=== PATIENT | male | born 1950 | race Caucasian/White ===

== ENCOUNTER 2020-05-15 12:32 | Inpatient (IN) ==
[2020-05-15] MEDS ORDERED: Naloxone 0.4 MG/ML INJ IVP PRN (15:17)
[2020-05-15] MEDS: Cefepime HCl 2,000 MG in Water for inj. (sterile) 20 ML IVP SCH (15:41)
[2020-05-15] MEDS ORDERED: Artificial Tears SOLN 15 ML BOTTLE BOTH EYES PRN (15:51)
[2020-05-15] MEDS ORDERED: Cefepime HCl 2,000 MG in Water for inj. (sterile) 20 ML IVP SCH (16:00)
[2020-05-15] MEDS ORDERED: Hydrocortisone Sodium Succ 100 MG/2 ML VIAL IVP SCH (16:00)
[2020-05-15] MEDS ORDERED: Vancomycin (wt based) 1,000 MG VIAL IVPB SCH (16:00)
[2020-05-15] MEDS: FentaNYL (PF) 1,000 MCG/100 ML IV.SOLN IVC SCH (16:21)
[2020-05-15] MEDS: Midazolam HCl 50 MG/100 ML IV.SOLN IVC SCH (16:21)
[2020-05-15] MEDS ORDERED: Ringers Solution, Lactated 1,000 ML IVC ONE (16:33)
[2020-05-15] MEDS: Artificial Tears SOLN 15 ML BOTTLE BOTH EYES SCH ×2 (16:43→20:20)
[2020-05-15] MEDS: MetroNIDAZOLE 500 MG/100 ML 500 MG/100 ML BAG IVPB SCH (16:48)
[2020-05-15 17:14] LABS: INR 2.3
[2020-05-15 17:24] LABS: Alanine Aminotransferase 150 Units/L (7-52); Albumin 2.6 g/dL (3.5-5.7); Albumin/Globulin Ratio 0.8 (1.1-2.2); Alkaline Phosphatase 75 Units/L (34-104); Aspartate Amino Transferase 325 Units/L (13-39); BUN/Creatinine Ratio 33 (6-26); Bilirubin,Total 0.9 mg/dL (0.3-1.0); Blood Urea Nitrogen 38 mg/dL (8-23); Calcium 7.7 mg/dL (8.6-10.3); Carbon Dioxide 18 mEq/L (23-29); Chloride 124 mEq/L (98-107); Globulin 3.2 g/dL (2.4-3.5); Glucose 339 mg/dL (70-105); Osmolality,Calculated 344 (280-300); Potassium 3.6 mEq/L (3.5-5.1); Sodium 156 mEq/L (136-145); Total Protein 5.8 g/dL (6.4-8.9); eGFR For African Americans > 60 (> 60); eGFR For Non-African Americans > 60 (> 60)
[2020-05-15] MEDS ORDERED: Dextrose Gel 15 GM/37.5 ML TUBE PO PRN ×2 (17:42)
[2020-05-15] MEDS ORDERED: D5% in Water 1,000 ML IVC PRN (17:42)
[2020-05-15 17:48] LABS: ABG Base Excess -5 mEq/L (-2 to 3); ABG HCO3 20 mEq/L (21-27); ABG Oxygen Saturation 96 % (95-98); ABG PCO2 33 mmHg (35-45); ABG PH 7.37 pH Units (7.32-7.45); ABG PO2 83 mmHg (85-104); ABG TCO2 21 mEq/L (20-26)
[2020-05-15] MEDS: Insulin LISPRO 300 UNITS/3 ML VIAL SQ SCH (17:55)
[2020-05-15] MEDS: Norepinephrine 4 MG/254 ML IV.SOLN IVC SCH (18:05)
[2020-05-15 19:19] LABS: Hematocrit 25.7 % (37.5-50.1); Hemoglobin 7.6 g/dL (12.9-16.9); Mean Corpuscular HGB Conc 29.6 g/dL (31.6-35.5); Mean Corpuscular Hemoglobin 29.7 pg (28.0-33.3); Mean Platelet Volume 10.7 fL (9.4-12.4); Platelet Count 383 K/mcL (140-400); Red Blood Count 2.56 M/mcL (4.19-5.50); White Blood Count 13.8 K/mcL (4.3-11.1)
[2020-05-15 19:21] LABS: Mean Corpuscular Volume 100.4 fL (83.0-100.0)
[2020-05-15 20:40] LABS: Hematocrit 22.4 % (37.5-50.1); Hemoglobin 7.3 g/dL (12.9-16.9); Mean Corpuscular HGB Conc 32.6 g/dL (31.6-35.5); Mean Corpuscular Hemoglobin 34.6 pg (28.0-33.3); Mean Corpuscular Volume 106.2 fL (83.0-100.0); Mean Platelet Volume 10.6 fL (9.4-12.4); Nucleated Red Blood Cells 0.3 /100 WBC (0); Platelet Count 400 K/mcL (140-400); Red Blood Count 2.11 M/mcL (4.19-5.50); White Blood Count 13.9 K/mcL (4.3-11.1)
[2020-05-15 21:06] LABS: BUN/Creatinine Ratio 34 (6-26); Blood Urea Nitrogen 33 mg/dL (8-23); Calcium 7.2 mg/dL (8.6-10.3); Carbon Dioxide 19 mEq/L (23-29); Chloride 125 mEq/L (98-107); Glucose 282 mg/dL (70-105); Osmolality,Calculated 335 (280-300); Potassium 3.1 mEq/L (3.5-5.1); Sodium 154 mEq/L (136-145); eGFR For African Americans > 60 (> 60); eGFR For Non-African Americans > 60 (> 60)
[2020-05-15] MEDS: Insulin DETEMIR 100 UNIT/ML X5UNITS SQ SCH (21:22)
[2020-05-15] MEDS: Chlorhexidine Rinse 15 ML MOUTHWASH MM SCH (21:23)
[2020-05-15 21:33] LABS: Lymphocytes # 0.6 K/mcL (0.6-4.6); Neutrophils # 13.3 K/mcL (1.6-8.9); Platelet Estimate Normal (Normal); Polychromasia 1+ (Not Present)
[2020-05-15 21:34] LABS: Acanthocytes 2+ (Not Present)
[2020-05-15 21:35] LABS: Smudge Cells Present (Not Present)
[2020-05-15 21:50] LABS: Troponin I 0.06 ng/mL (< 0.04)
[2020-05-16 00:03] LABS: BUN/Creatinine Ratio 35 (6-26); Blood Urea Nitrogen 31 mg/dL (8-23); Calcium 7.2 mg/dL (8.6-10.3); Carbon Dioxide 21 mEq/L (23-29); Chloride 126 mEq/L (98-107); Glucose 207 mg/dL (70-105); Osmolality,Calculated 329 (280-300); Potassium 3.2 mEq/L (3.5-5.1); Sodium 153 mEq/L (136-145); eGFR For African Americans > 60 (> 60); eGFR For Non-African Americans > 60 (> 60)
[2020-05-16] MEDS: MetroNIDAZOLE 500 MG/100 ML 500 MG/100 ML BAG IVPB SCH ×4 (00:13→23:14)
[2020-05-16] MEDS: Artificial Tears SOLN 15 ML BOTTLE BOTH EYES SCH ×7 (00:13→23:27)
[2020-05-16] MEDS: Insulin LISPRO 300 UNITS/3 ML VIAL SQ SCH ×4 (00:15→19:33)
[2020-05-16] MEDS: FentaNYL (PF) 1,000 MCG/100 ML IV.SOLN IVC SCH ×3 (00:33→20:18)
[2020-05-16] MEDS: Norepinephrine 4 MG/254 ML IV.SOLN IVC SCH ×2 (00:57→20:18)
[2020-05-16] MEDS: Cefepime HCl 2,000 MG in Water for inj. (sterile) 20 ML IVP SCH ×3 (03:42→21:10)
[2020-05-16 04:16] LABS: ABG Base Excess -2 mEq/L (-2 to 3); ABG HCO3 24 mEq/L (21-27); ABG Oxygen Saturation 97 % (95-98); ABG PCO2 47 mmHg (35-45); ABG PH 7.31 pH Units (7.32-7.45); ABG PO2 100 mmHg (85-104); ABG TCO2 25 mEq/L (20-26); Blood Gas Modality ASSIST CONTROL; Blood Gas VT 450 cc
[2020-05-16 04:28] LABS: Hematocrit 20.7 % (37.5-50.1); Hemoglobin 6.9 g/dL (12.9-16.9); Mean Corpuscular HGB Conc 33.3 g/dL (31.6-35.5); Mean Corpuscular Volume 105.1 fL (83.0-100.0); Mean Platelet Volume 10.8 fL (9.4-12.4); Platelet Count 338 K/mcL (140-400); Red Blood Count 1.97 M/mcL (4.19-5.50); Red Cell Distribution Width 21.7 % (11.5-14.5); White Blood Count 13.5 K/mcL (4.3-11.1)
[2020-05-16 04:37] LABS: INR 2.1; Prothrombin Time 23.4 Seconds (9.4-12.1)
[2020-05-16 04:42] LABS: Alanine Aminotransferase 159 Units/L (7-52); Albumin 2.3 g/dL (3.5-5.7); Albumin/Globulin Ratio 0.8 (1.1-2.2); Alkaline Phosphatase 64 Units/L (34-104); Aspartate Amino Transferase 222 Units/L (13-39); BUN/Creatinine Ratio 38 (6-26); Bilirubin,Total 0.6 mg/dL (0.3-1.0); Blood Urea Nitrogen 30 mg/dL (8-23); Calcium 7.1 mg/dL (8.6-10.3); Carbon Dioxide 21 mEq/L (23-29); Chloride 126 mEq/L (98-107); Glucose 104 mg/dL (70-105); Osmolality,Calculated 320 (280-300); Potassium 3.1 mEq/L (3.5-5.1); Sodium 152 mEq/L (136-145); Total Protein 5.3 g/dL (6.4-8.9); eGFR For African Americans > 60 (> 60); eGFR For Non-African Americans > 60 (> 60)
[2020-05-16] MEDS: Chlorhexidine Rinse 15 ML MOUTHWASH MM SCH ×2 (08:19→21:05)
[2020-05-16] MEDS: Folic Acid 1 MG TABLET PO SCH (08:21)
[2020-05-16] MEDS ORDERED: Isovue-370 500 ML BOTTLE IVP ONE (08:30)
[2020-05-16] MEDS ORDERED: Perflutren Lipid Microsphere 1.3 ML in 0.9 % Sodium Chloride 8.7 ML IVP PRN (08:34)
[2020-05-16] MEDS ORDERED: Aspirin Enteric Coated 81 MG Tablet PO SCH (09:00)
[2020-05-16] MEDS: Midazolam HCl 50 MG/100 ML IV.SOLN IVC SCH (09:10)
[2020-05-16] MEDS ORDERED: 0.9 % Sodium Chloride 250 ML ONE (09:57)
[2020-05-16 10:35] LABS: Adenovirus Not Detected (Not Detect); Coronavirus 229E Not Detected (Not Detect); Coronavirus HKU1 Not Detected (Not Detect); Coronavirus NL63 Not Detected (Not Detect); Coronavirus OC43 Not Detected (Not Detect)
[2020-05-16 10:36] LABS: Bordetella Pertussis Not Detected (Not Detect); Chlamydophila pneumoniae Not Detected (Not Detect); Human Metapneumovirus Not Detected (Not Detect); Human Rhinovirus/Enterovirus Not Detected (Not Detect); Influenza A Subtype 2009 H1 Not Detected (Not Detect); Influenza B Not Detected (Not Detect); Mycoplasma pneumoniae Not Detected (Not Detect); Parainfluenza Virus 1 Not Detected (Not Detect); Parainfluenza Virus 2 Not Detected (Not Detect); Parainfluenza Virus 3 Not Detected (Not Detect); Parainfluenza Virus 4 Not Detected (Not Detect); Respiratory Syncytial Virus Not Detected (Not Detect); SARS-CoV-2 DETECTED (Not Detect)
[2020-05-16] MEDS: D5% in Water 1,000 ML IVC SCH ×2 (10:39→23:23)
[2020-05-16] MEDS: Dexamethasone 4 MG/ML VIAL IVP SCH (14:03)
[2020-05-16 14:55] LABS: Mean Corpuscular Hemoglobin 39.5 pg (28.0-33.3); Platelet Count 262 K/mcL (140-400); Red Blood Count 2.15 M/mcL (4.19-5.50); Red Cell Distribution Width 24.4 % (11.5-14.5)
[2020-05-16 14:56] LABS: Hemoglobin 8.5 g/dL (12.9-16.9)
[2020-05-16 15:04] LABS: Fibrinogen 512 mg/dL (169-393)
[2020-05-16 15:08] LABS: D-Dimer 7336 ng/mLFEU (0-500)
[2020-05-16 15:13] LABS: BUN/Creatinine Ratio 35 (6-26); Blood Urea Nitrogen 26 mg/dL (8-23); Calcium 6.9 mg/dL (8.6-10.3); Carbon Dioxide 21 mEq/L (23-29); Chloride 125 mEq/L (98-107); Glucose 111 mg/dL (70-105); Osmolality,Calculated 317 (280-300); Potassium 3.3 mEq/L (3.5-5.1); Sodium 151 mEq/L (136-145); eGFR For African Americans > 60 (> 60); eGFR For Non-African Americans > 60 (> 60)
[2020-05-16 15:14] LABS: C-Reactive Protein 190 mg/L (Less than 10)
[2020-05-16 15:32] LABS: Ferritin 359 ng/mL (20-250)
[2020-05-16] MEDS ORDERED: Potassium Chloride Elixir 20 MEQ/15 ML UDC GTUBE ONE (15:32)
[2020-05-16] MEDS: Pantoprazole 40 MG in 0.9 % Sodium Chloride Mini Bag 100 ML IVC SCH ×2 (15:42→21:03)
[2020-05-16 16:31] LABS: VBG Ionized Calcium 1.02 mmol/L (1.15-1.35)
[2020-05-16] MEDS ORDERED: Pantoprazole 40 MG VIAL IVP SCH (18:00)
[2020-05-16 20:12] LABS: Hematocrit 28.7 % (37.5-50.1); Hemoglobin 9.7 g/dL (12.9-16.9); Mean Corpuscular HGB Conc 33.8 g/dL (31.6-35.5); Mean Corpuscular Hemoglobin 33.6 pg (28.0-33.3); Mean Platelet Volume 11.1 fL (9.4-12.4); Platelet Count 274 K/mcL (140-400); Red Blood Count 2.89 M/mcL (4.19-5.50); Red Cell Distribution Width 20.2 % (11.5-14.5); White Blood Count 17.5 K/mcL (4.3-11.1)
[2020-05-16 20:24] LABS: Mean Corpuscular Volume 99.3 fL (83.0-100.0)
[2020-05-16] MEDS: Insulin DETEMIR 100 UNIT/ML X5UNITS SQ SCH (21:06)
[2020-05-17] MEDS: Insulin LISPRO 300 UNITS/3 ML VIAL SQ SCH ×5 (00:52→23:34)
[2020-05-17] MEDS: Pantoprazole 40 MG in 0.9 % Sodium Chloride Mini Bag 100 ML IVC SCH ×5 (02:06→18:42)
[2020-05-17] MEDS: Artificial Tears SOLN 15 ML BOTTLE BOTH EYES SCH ×6 (02:50→23:32)
[2020-05-17 04:32] LABS: Hematocrit 30.9 % (37.5-50.1); Hemoglobin 10.5 g/dL (12.9-16.9); Mean Platelet Volume 11.5 fL (9.4-12.4); Platelet Count 249 K/mcL (140-400); Red Cell Distribution Width 23.1 % (11.5-14.5); White Blood Count 16.3 K/mcL (4.3-11.1)
[2020-05-17 04:40] LABS: ABG Base Excess -6 mEq/L (-2 to 3); ABG HCO3 19 mEq/L (21-27); ABG Oxygen Saturation 96 % (95-98); ABG PCO2 35 mmHg (35-45); ABG PH 7.35 pH Units (7.32-7.45); ABG PO2 84 mmHg (85-104); ABG TCO2 20 mEq/L (20-26); Blood Gas Modality ASSIST CONTROL; Blood Gas VT 450 cc
[2020-05-17 04:50] LABS: Alanine Aminotransferase 262 Units/L (7-52); Albumin 2.4 g/dL (3.5-5.7); Albumin/Globulin Ratio 0.8 (1.1-2.2); Alkaline Phosphatase 76 Units/L (34-104); Aspartate Amino Transferase 276 Units/L (13-39); BUN/Creatinine Ratio 33 (6-26); Bilirubin,Total 0.6 mg/dL (0.3-1.0); Blood Urea Nitrogen 22 mg/dL (8-23); Calcium 6.8 mg/dL (8.6-10.3); Carbon Dioxide 16 mEq/L (23-29); Chloride 123 mEq/L (98-107); Glucose 244 mg/dL (70-105); Osmolality,Calculated 311 (280-300); Sodium 145 mEq/L (136-145); Total Protein 5.4 g/dL (6.4-8.9); eGFR For African Americans > 60 (> 60); eGFR For Non-African Americans > 60 (> 60)
[2020-05-17] MEDS: Cefepime HCl 2,000 MG in Water for inj. (sterile) 20 ML IVP SCH ×3 (04:57→20:24)
[2020-05-17] MEDS: FentaNYL (PF) 1,000 MCG/100 ML IV.SOLN IVC SCH ×2 (06:11→17:37)
[2020-05-17] MEDS: Midazolam HCl 50 MG/100 ML IV.SOLN IVC SCH (06:12)
[2020-05-17] MEDS: Chlorhexidine Rinse 15 ML MOUTHWASH MM SCH ×2 (08:30→20:23)
[2020-05-17] MEDS: Dexamethasone 4 MG/ML VIAL IVP SCH (08:30)
[2020-05-17] MEDS: Folic Acid 1 MG TABLET PO SCH (08:30)
[2020-05-17] MEDS: MetroNIDAZOLE 500 MG/100 ML 500 MG/100 ML BAG IVPB SCH ×3 (08:30→23:32)
[2020-05-17] MEDS: Docusate Oral Soln 100 MG/10 ML UDC GTUBE SCH ×2 (13:11→20:23)
[2020-05-17] MEDS: *HR* Heparin 5,000 UNIT/ML VIAL SQ SCH ×2 (13:12→20:24)
[2020-05-17] MEDS: Norepinephrine 4 MG/254 ML IV.SOLN IVC SCH (14:45)
[2020-05-17] MEDS: Dexmedetomidine HCl 400 MCG/100 ML MLS IVC SCH (14:57)
[2020-05-17] MEDS: Insulin DETEMIR 100 UNIT/ML X5UNITS SQ SCH (20:24)
[2020-05-18] MEDS: Pantoprazole 40 MG in 0.9 % Sodium Chloride Mini Bag 100 ML IVC SCH ×3 (00:07→11:11)
[2020-05-18 04:12] LABS: Hematocrit 29.2 % (37.5-50.1); Hemoglobin 10.1 g/dL (12.9-16.9); INR 1.9; Mean Corpuscular HGB Conc 34.6 g/dL (31.6-35.5); Mean Corpuscular Hemoglobin 34.8 pg (28.0-33.3); Mean Corpuscular Volume 100.7 fL (83.0-100.0); Mean Platelet Volume 11.8 fL (9.4-12.4); Platelet Count 303 K/mcL (140-400); Prothrombin Time 21.5 Seconds (9.4-12.1); Red Cell Distribution Width 21.3 % (11.5-14.5); White Blood Count 21.1 K/mcL (4.3-11.1)
[2020-05-18] MEDS: Artificial Tears SOLN 15 ML BOTTLE BOTH EYES SCH ×5 (04:16→20:17)
[2020-05-18 04:18] LABS: ABG Base Excess -3 mEq/L (-2 to 3); ABG HCO3 20 mEq/L (21-27); ABG Oxygen Saturation 95 % (95-98); ABG PCO2 32 mmHg (35-45); ABG PH 7.42 pH Units (7.32-7.45); ABG PO2 73 mmHg (85-104); ABG TCO2 21 mEq/L (20-26); Blood Gas VT 450 cc
[2020-05-18 04:28] LABS: Alanine Aminotransferase 270 Units/L (7-52); Albumin 2.3 g/dL (3.5-5.7); Albumin/Globulin Ratio 0.8 (1.1-2.2); Alkaline Phosphatase 80 Units/L (34-104); Aspartate Amino Transferase 213 Units/L (13-39); BUN/Creatinine Ratio 39 (6-26); Bilirubin,Total 0.6 mg/dL (0.3-1.0); Blood Urea Nitrogen 26 mg/dL (8-23); Calcium 6.9 mg/dL (8.6-10.3); Carbon Dioxide 21 mEq/L (23-29); Chloride 124 mEq/L (98-107); Glucose 139 mg/dL (70-105); Osmolality,Calculated 321 (280-300); Potassium 3.3 mEq/L (3.5-5.1); Sodium 152 mEq/L (136-145); Total Protein 5.3 g/dL (6.4-8.9); eGFR For African Americans > 60 (> 60); eGFR For Non-African Americans > 60 (> 60)
[2020-05-18 04:33] LABS: C-Reactive Protein 56 mg/L (Less than 10)
[2020-05-18] MEDS: FentaNYL (PF) 1,000 MCG/100 ML IV.SOLN IVC SCH ×2 (04:44→14:40)
[2020-05-18 04:48] LABS: Ferritin 378 ng/mL (20-250)
[2020-05-18] MEDS: *HR* Heparin 5,000 UNIT/ML VIAL SQ SCH ×3 (05:09→22:26)
[2020-05-18] MEDS: Cefepime HCl 2,000 MG in Water for inj. (sterile) 20 ML IVP SCH ×3 (05:10→22:24)
[2020-05-18] MEDS: Insulin LISPRO 300 UNITS/3 ML VIAL SQ SCH ×3 (05:24→18:12)
[2020-05-18] MEDS: Chlorhexidine Rinse 15 ML MOUTHWASH MM SCH ×2 (07:37→22:18)
[2020-05-18] MEDS: MetroNIDAZOLE 500 MG/100 ML 500 MG/100 ML BAG IVPB SCH ×2 (07:37→16:54)
[2020-05-18] MEDS: Folic Acid 1 MG TABLET PO SCH (07:38)
[2020-05-18] MEDS: Docusate Oral Soln 100 MG/10 ML UDC GTUBE SCH ×2 (07:38→22:19)
[2020-05-18] MEDS: Dexamethasone 4 MG/ML VIAL IVP SCH (07:38)
[2020-05-18] MEDS: Norepinephrine 4 MG/254 ML IV.SOLN IVC SCH (12:05)
[2020-05-18] MEDS: Dexmedetomidine HCl 400 MCG/100 ML MLS IVC SCH (13:42)
[2020-05-18] MEDS: Potassium Chloride Elixir 20 MEQ/15 ML UDC GTUBE SCH ×2 (14:18→22:25)
[2020-05-18] MEDS ORDERED: Aspirin Enteric Coated 81 MG Tablet PO SCH (16:30)
[2020-05-18] MEDS: Midazolam HCl 50 MG/100 ML IV.SOLN IVC SCH (16:52)
[2020-05-18] MEDS: Pantoprazole 40 MG VIAL IVP SCH (16:55)
[2020-05-18] MEDS: Aspirin 81 MG TAB.CHEW GTUBE SCH (17:51)
[2020-05-18] MEDS: Insulin DETEMIR 100 UNIT/ML X5UNITS SQ SCH (22:22)
[2020-05-19] MEDS: MetroNIDAZOLE 500 MG/100 ML 500 MG/100 ML BAG IVPB SCH ×3 (00:55→17:03)
[2020-05-19] MEDS: Artificial Tears SOLN 15 ML BOTTLE BOTH EYES SCH ×6 (00:55→19:38)
[2020-05-19] MEDS: Insulin LISPRO 300 UNITS/3 ML VIAL SQ SCH ×2 (00:57→06:41)
[2020-05-19 04:44] LABS: ABG Base Excess -4 mEq/L (-2 to 3); ABG HCO3 20 mEq/L (21-27); ABG Oxygen Saturation 96 % (95-98); ABG PCO2 29 mmHg (35-45); ABG PH 7.44 pH Units (7.32-7.45); ABG PO2 77 mmHg (85-104); ABG TCO2 21 mEq/L (20-26); Blood Gas VT 450 cc
[2020-05-19] MEDS: Norepinephrine 4 MG/254 ML IV.SOLN IVC SCH ×2 (04:48→22:26)
[2020-05-19] MEDS: *HR* Heparin 5,000 UNIT/ML VIAL SQ SCH (05:44)
[2020-05-19] MEDS: Cefepime HCl 2,000 MG in Water for inj. (sterile) 20 ML IVP SCH ×3 (05:44→23:59)
[2020-05-19] MEDS: Pantoprazole 40 MG VIAL IVP SCH ×2 (05:46→16:32)
[2020-05-19] MEDS: Dexmedetomidine HCl 400 MCG/100 ML MLS IVC SCH ×2 (06:03→16:30)
[2020-05-19] MEDS: FentaNYL (PF) 1,000 MCG/100 ML IV.SOLN IVC SCH ×2 (07:00→23:58)
[2020-05-19] MEDS: Dexamethasone 4 MG/ML VIAL IVP SCH (07:31)
[2020-05-19] MEDS: Chlorhexidine Rinse 15 ML MOUTHWASH MM SCH ×2 (07:33→19:38)
[2020-05-19] MEDS: Aspirin 81 MG TAB.CHEW GTUBE SCH (07:34)
[2020-05-19] MEDS: Folic Acid 1 MG TABLET PO SCH (07:34)
[2020-05-19] MEDS: Docusate Oral Soln 100 MG/10 ML UDC GTUBE SCH ×2 (07:38→19:38)
[2020-05-19] MEDS: Potassium Chloride Elixir 20 MEQ/15 ML UDC GTUBE SCH (07:38)
[2020-05-19 09:34] LABS: Hematocrit 31.6 % (37.5-50.1); Hemoglobin 10.4 g/dL (12.9-16.9); Mean Corpuscular HGB Conc 32.9 g/dL (31.6-35.5); Mean Corpuscular Hemoglobin 33.9 pg (28.0-33.3); Mean Corpuscular Volume 102.9 fL (83.0-100.0); Mean Platelet Volume 11.4 fL (9.4-12.4); Platelet Count 312 K/mcL (140-400); Red Blood Count 3.07 M/mcL (4.19-5.50); White Blood Count 22.8 K/mcL (4.3-11.1)
[2020-05-19] MEDS ORDERED: Calcium Gluconate 1,000 MG/10 ML VIAL IVPB ONE (09:45)
[2020-05-19 10:16] LABS: Potassium 5.5 mEq/L (3.5-5.1)
[2020-05-19 10:17] LABS: Alanine Aminotransferase 192 Units/L (7-52); Albumin 2.4 g/dL (3.5-5.7); Albumin/Globulin Ratio 0.8 (1.1-2.2); Alkaline Phosphatase 113 Units/L (34-104); Aspartate Amino Transferase 75 Units/L (13-39); BUN/Creatinine Ratio 35 (6-26); Bilirubin,Total 0.4 mg/dL (0.3-1.0); Blood Urea Nitrogen 23 mg/dL (8-23); Carbon Dioxide 17 mEq/L (23-29); Chloride 124 mEq/L (98-107); Globulin 2.9 g/dL (2.4-3.5); Glucose 292 mg/dL (70-105); Osmolality,Calculated 320 (280-300); Sodium 148 mEq/L (136-145); Total Protein 5.3 g/dL (6.4-8.9); eGFR For African Americans > 60 (> 60); eGFR For Non-African Americans > 60 (> 60)
[2020-05-19] MEDS: Calcium Gluconate 1gm/50mL 1 GM/50 ML BAG IVPB SCH ×2 (11:08→12:25)
[2020-05-19] MEDS ORDERED: *HR* Heparin 5,000 UNIT/ML VIAL IVP PRN ×2 (11:42)
[2020-05-19] MEDS: Insulin LISPRO 300 UNITS/3 ML VIAL SUBQ SCH ×3 (12:24→20:10)
[2020-05-19 14:12] LABS: Heparin anti-factor XA UFH < 0.04 IU/mL (0.30-0.70)
[2020-05-19 14:13] LABS: INR 1.4; Prothrombin Time 16.3 Seconds (9.4-12.1)
[2020-05-19] MEDS: Furosemide 40 MG/4 ML VIAL IVP SCH (14:26)
[2020-05-19] MEDS: Heparin 25,000UNIT/250ML 1/2NS 25,000 UNIT/250 ML IV.SOLN IVC SCH (14:29)
[2020-05-19] MEDS: Midazolam HCl 50 MG/100 ML IV.SOLN IVC SCH (16:33)
[2020-05-19] MEDS: Insulin DETEMIR 100 UNIT/ML X5UNITS SUBQ SCH (20:10)
[2020-05-20] MEDS: Insulin LISPRO 300 UNITS/3 ML VIAL SUBQ SCH ×6 (00:53→20:13)
[2020-05-20 04:26] LABS: Hematocrit 32.4 % (37.5-50.1); Hemoglobin 9.8 g/dL (12.9-16.9); Mean Corpuscular HGB Conc 30.2 g/dL (31.6-35.5); Mean Corpuscular Hemoglobin 29.4 pg (28.0-33.3); Mean Corpuscular Volume 97.3 fL (83.0-100.0); Platelet Count 268 K/mcL (140-400); Red Blood Count 3.33 M/mcL (4.19-5.50); Red Cell Distribution Width 19.5 % (11.5-14.5); White Blood Count 24.3 K/mcL (4.3-11.1)
[2020-05-20 04:29] LABS: ABG Base Excess -2 mEq/L (-2 to 3); ABG HCO3 22 mEq/L (21-27); ABG Oxygen Saturation 97 % (95-98); ABG PCO2 32 mmHg (35-45); ABG PH 7.44 pH Units (7.32-7.45); ABG PO2 83 mmHg (85-104); ABG TCO2 23 mEq/L (20-26); Blood Gas VT 450 cc
[2020-05-20 04:44] LABS: Alanine Aminotransferase 126 Units/L (7-52); Albumin 2.2 g/dL (3.5-5.7); Albumin/Globulin Ratio 0.8 (1.1-2.2); Alkaline Phosphatase 84 Units/L (34-104); Aspartate Amino Transferase 35 Units/L (13-39); BUN/Creatinine Ratio 45 (6-26); Bilirubin,Total 0.4 mg/dL (0.3-1.0); Blood Urea Nitrogen 26 mg/dL (8-23); Calcium 7.5 mg/dL (8.6-10.3); Carbon Dioxide 24 mEq/L (23-29); Chloride 115 mEq/L (98-107); Globulin 2.9 g/dL (2.4-3.5); Glucose 213 mg/dL (70-105); Osmolality,Calculated 305 (280-300); Potassium 4.3 mEq/L (3.5-5.1); Sodium 142 mEq/L (136-145); Total Protein 5.1 g/dL (6.4-8.9); eGFR For African Americans > 60 (> 60); eGFR For Non-African Americans > 60 (> 60)
[2020-05-20] MEDS: Artificial Tears SOLN 15 ML BOTTLE BOTH EYES SCH ×6 (04:52→20:15)
[2020-05-20] MEDS: Cefepime HCl 2,000 MG in Water for inj. (sterile) 20 ML IVP SCH ×3 (05:58→21:44)
[2020-05-20] MEDS: Pantoprazole 40 MG VIAL IVP SCH ×2 (05:59→17:14)
[2020-05-20] MEDS: Dexmedetomidine HCl 400 MCG/100 ML MLS IVC SCH (06:59)
[2020-05-20] MEDS: Folic Acid 1 MG TABLET PO SCH (07:33)
[2020-05-20] MEDS: Chlorhexidine Rinse 15 ML MOUTHWASH MM SCH ×2 (07:33→21:32)
[2020-05-20] MEDS: Dexamethasone 4 MG/ML VIAL IVP SCH (07:33)
[2020-05-20] MEDS: Aspirin 81 MG TAB.CHEW GTUBE SCH (07:33)
[2020-05-20] MEDS: Furosemide 40 MG/4 ML VIAL IVP SCH (07:34)
[2020-05-20] MEDS: MetroNIDAZOLE 500 MG/100 ML 500 MG/100 ML BAG IVPB SCH ×3 (07:34→17:13)
[2020-05-20] MEDS: Docusate Oral Soln 100 MG/10 ML UDC GTUBE SCH ×2 (07:37→21:32)
[2020-05-20] MEDS: Insulin DETEMIR 100 UNIT/ML X5UNITS SUBQ SCH ×2 (07:38→21:32)
[2020-05-20] MEDS: FentaNYL (PF) 1,000 MCG/100 ML IV.SOLN IVC SCH ×2 (10:45→11:00)
[2020-05-20 12:36] LABS: VBG Ionized Calcium 1.09 mmol/L (1.15-1.35)
[2020-05-20] MEDS: Calcium Gluconate 1gm/50mL 1 GM/50 ML BAG IVPB SCH ×2 (15:10→16:10)
[2020-05-20] MEDS: Norepinephrine 4 MG/254 ML IV.SOLN IVC SCH (15:13)
[2020-05-20] MEDS: Midazolam HCl 50 MG/100 ML IV.SOLN IVC SCH (16:21)
[2020-05-20] MEDS: Heparin 25,000UNIT/250ML 1/2NS 25,000 UNIT/250 ML IV.SOLN IVC SCH (16:22)
[2020-05-20] MEDS ORDERED: Potassium Chloride Elixir 20 MEQ/15 ML UDC GTUBE SCH (21:00)
[2020-05-21] MEDS: Insulin LISPRO 300 UNITS/3 ML VIAL SUBQ SCH ×6 (00:13→21:20)
[2020-05-21] MEDS: Artificial Tears SOLN 15 ML BOTTLE BOTH EYES SCH ×6 (00:15→21:52)
[2020-05-21] MEDS: MetroNIDAZOLE 500 MG/100 ML 500 MG/100 ML BAG IVPB SCH ×3 (00:18→15:47)
[2020-05-21 04:38] LABS: ABG Base Excess 0 mEq/L (-2 to 3); ABG HCO3 23 mEq/L (21-27); ABG Oxygen Saturation 95 % (95-98); ABG PCO2 33 mmHg (35-45); ABG PH 7.46 pH Units (7.32-7.45); ABG PO2 72 mmHg (85-104); ABG TCO2 24 mEq/L (20-26); Blood Gas VT 450 cc
[2020-05-21] MEDS: Pantoprazole 40 MG VIAL IVP SCH ×2 (05:20→18:03)
[2020-05-21] MEDS: Cefepime HCl 2,000 MG in Water for inj. (sterile) 20 ML IVP SCH ×3 (05:21→21:53)
[2020-05-21] MEDS: Heparin 25,000UNIT/250ML 1/2NS 25,000 UNIT/250 ML IV.SOLN IVC SCH (05:24)
[2020-05-21] MEDS: FentaNYL (PF) 1,000 MCG/100 ML IV.SOLN IVC SCH (05:47)
[2020-05-21] MEDS: Aspirin 81 MG TAB.CHEW GTUBE SCH (07:54)
[2020-05-21] MEDS: Chlorhexidine Rinse 15 ML MOUTHWASH MM SCH ×2 (07:55→21:53)
[2020-05-21] MEDS: Dexamethasone 4 MG/ML VIAL IVP SCH (07:55)
[2020-05-21] MEDS: Docusate Oral Soln 100 MG/10 ML UDC GTUBE SCH ×2 (07:55→21:53)
[2020-05-21] MEDS: Folic Acid 1 MG TABLET PO SCH (07:56)
[2020-05-21] MEDS: Insulin DETEMIR 100 UNIT/ML X5UNITS SUBQ SCH ×2 (07:56→21:53)
[2020-05-21] MEDS: Furosemide 40 MG/4 ML VIAL IVP SCH (07:56)
[2020-05-21 10:57] LABS: Bacteria,Urine Few per hpf (None-Few); Bilirubin,Urine Negative (Negative); Blood,Urine Trace (Negative); Clarity,Urine Clear (Clear); Color,Urine Colorless (Yellow); Glucose,Urine (UA) Normal (Normal); Ketones,Urine Negative (Negative); Leukocyte Esterase,Urine Negative (Negative); Mucus,Urine Few per lpf (None-Few); Nitrite,Urine Negative (Negative); Protein,Urine Negative (Neg-Trace); RBC,Urine 0-3 per hpf (0-3); Specific Gravity,Urine 1.009 (1.010-1.025); Squamous Epithelial Cell,Urine Few per hpf (None-Few); Urobilinogen,Urine Normal (Normal); WBC,Urine 0-3 per hpf (0-3)
[2020-05-21 11:50] LABS: Hematocrit 31.8 % (37.5-50.1); Hemoglobin 11.1 g/dL (12.9-16.9); Mean Corpuscular HGB Conc 34.9 g/dL (31.6-35.5); Mean Corpuscular Volume 100.3 fL (83.0-100.0); Mean Platelet Volume 11.9 fL (9.4-12.4); Nucleated Red Blood Cells 0.1 /100 WBC (0); Platelet Count 258 K/mcL (140-400); Red Blood Count 3.17 M/mcL (4.19-5.50); Red Cell Distribution Width 22.5 % (11.5-14.5); White Blood Count 24.3 K/mcL (4.3-11.1)
[2020-05-21 12:12] LABS: Alanine Aminotransferase 86 Units/L (7-52); Albumin 2.6 g/dL (3.5-5.7); Albumin/Globulin Ratio 0.8 (1.1-2.2); Alkaline Phosphatase 86 Units/L (34-104); Aspartate Amino Transferase 29 Units/L (13-39); BUN/Creatinine Ratio 38 (6-26); Bilirubin,Total 0.5 mg/dL (0.3-1.0); Blood Urea Nitrogen 20 mg/dL (8-23); Calcium 7.9 mg/dL (8.6-10.3); Carbon Dioxide 25 mEq/L (23-29); Chloride 107 mEq/L (98-107); Globulin 3.3 g/dL (2.4-3.5); Glucose 124 mg/dL (70-105); Osmolality,Calculated 290 (280-300); Sodium 138 mEq/L (136-145); Total Protein 5.9 g/dL (6.4-8.9); eGFR For African Americans > 60 (> 60); eGFR For Non-African Americans > 60 (> 60)
[2020-05-21 12:46] LABS: Anisocytosis 2+ (Not Present); Lymphocytes # 2.2 K/mcL (0.6-4.6); Monocytes # 1.7 K/mcL (0.0-1.3); Neutrophils # 19.7 K/mcL (1.6-8.9); Polychromasia 1+ (Not Present)
[2020-05-21] MEDS: Norepinephrine 4 MG/254 ML IV.SOLN IVC SCH (13:25)
[2020-05-21] MEDS: Dexmedetomidine HCl 400 MCG/100 ML MLS IVC SCH (14:16)
[2020-05-21] MEDS: Midazolam HCl 50 MG/100 ML IV.SOLN IVC SCH (18:04)
[2020-05-22] MEDS: Artificial Tears SOLN 15 ML BOTTLE BOTH EYES SCH ×7 (00:55→23:59)
[2020-05-22] MEDS: Insulin LISPRO 300 UNITS/3 ML VIAL SUBQ SCH ×6 (01:10→20:13)
[2020-05-22] MEDS: MetroNIDAZOLE 500 MG/100 ML 500 MG/100 ML BAG IVPB SCH ×3 (01:12→15:17)
[2020-05-22] MEDS: Pantoprazole 40 MG VIAL IVP SCH ×2 (04:54→17:49)
[2020-05-22] MEDS: Cefepime HCl 2,000 MG in Water for inj. (sterile) 20 ML IVP SCH ×3 (04:54→22:20)
[2020-05-22] MEDS: Dexmedetomidine HCl 400 MCG/100 ML MLS IVC SCH (05:41)
[2020-05-22] MEDS: *HR* Metoprolol 5 MG/5 ML VIAL IVP PRN ×2 (05:55→13:26)
[2020-05-22 06:55] LABS: Hematocrit 26.3 % (37.5-50.1); Hemoglobin 9.6 g/dL (12.9-16.9); Mean Corpuscular HGB Conc 36.5 g/dL (31.6-35.5); Mean Corpuscular Hemoglobin 36.4 pg (28.0-33.3); Mean Corpuscular Volume 99.6 fL (83.0-100.0); Mean Platelet Volume 12.7 fL (9.4-12.4); Monocytes # 1.5 K/mcL (0.0-1.3); Nucleated Red Blood Cells 0.1 /100 WBC (0); Platelet Count 292 K/mcL (140-400); Red Blood Count 2.64 M/mcL (4.19-5.50); Red Cell Distribution Width 22.2 % (11.5-14.5)
[2020-05-22 07:04] LABS: Alanine Aminotransferase 61 Units/L (7-52); Albumin 2.2 g/dL (3.5-5.7); Albumin/Globulin Ratio 0.7 (1.1-2.2); Alkaline Phosphatase 66 Units/L (34-104); Aspartate Amino Transferase 26 Units/L (13-39); BUN/Creatinine Ratio 33 (6-26); Bilirubin,Total 0.5 mg/dL (0.3-1.0); Blood Urea Nitrogen 15 mg/dL (8-23); Calcium 7.4 mg/dL (8.6-10.3); Carbon Dioxide 26 mEq/L (23-29); Chloride 108 mEq/L (98-107); Glucose 102 mg/dL (70-105); Magnesium 1.7 mg/dL (1.6-2.6); Osmolality,Calculated 289 (280-300); Phosphorous 2.3 mg/dL (2.7-4.5); Potassium 3.2 mEq/L (3.5-5.1); Sodium 139 mEq/L (136-145); Total Protein 5.2 g/dL (6.4-8.9); eGFR For African Americans > 60 (> 60); eGFR For Non-African Americans > 60 (> 60)
[2020-05-22 07:15] LABS: Anisocytosis 1+ (Not Present); Burr Cells 1+ (Not Present); Eosinophils # 0.4 K/mcL (0.0-0.6); Lymphocytes # 1.5 K/mcL (0.6-4.6); Neutrophils # 15.2 K/mcL (1.6-8.9); Platelet Estimate Normal (Normal); Poikilocytosis 1+ (Not Present)
[2020-05-22 07:16] LABS: Toxic Granulation Present (Not Present)
[2020-05-22] MEDS: Aspirin 81 MG TAB.CHEW GTUBE SCH (07:46)
[2020-05-22] MEDS: Furosemide 40 MG/4 ML VIAL IVP SCH (08:14)
[2020-05-22] MEDS: Dexamethasone 4 MG/ML VIAL IVP SCH (08:15)
[2020-05-22] MEDS: Chlorhexidine Rinse 15 ML MOUTHWASH MM SCH ×2 (08:15→19:54)
[2020-05-22] MEDS: Folic Acid 1 MG TABLET PO SCH (08:15)
[2020-05-22] MEDS: Norepinephrine 4 MG/254 ML IV.SOLN IVC SCH (08:20)
[2020-05-22] MEDS: Insulin DETEMIR 100 UNIT/ML X5UNITS SUBQ SCH ×2 (09:11→19:57)
[2020-05-22] MEDS: Docusate Oral Soln 100 MG/10 ML UDC GTUBE SCH ×2 (09:11→19:53)
[2020-05-22] MEDS: Phenylephrine 10 MG in 0.9 % Sodium Chloride 250 ML IVC SCH ×3 (09:47→15:39)
[2020-05-22] MEDS ORDERED: *HR* Heparin 5,000 UNIT/ML VIAL IVP PRN ×2 (11:23)
[2020-05-22] MEDS ORDERED: Amiodarone Premix 150 MG/100 ML BAG IVPB ONE (13:43)
[2020-05-22] MEDS ORDERED: Amiodarone Premix 360 MG/200 ML BAG IVC ONE (13:43)
[2020-05-22] MEDS: Midazolam HCl 50 MG/100 ML IV.SOLN IVC SCH (16:30)
[2020-05-22] MEDS: Phenylephrine 50 MG in 0.9 % Sodium Chloride 250 ML IVC SCH (17:51)
[2020-05-22 19:19] LABS: Hematocrit 31.4 % (37.5-50.1); Hemoglobin 10.1 g/dL (12.9-16.9); Mean Corpuscular HGB Conc 32.2 g/dL (31.6-35.5); Mean Corpuscular Hemoglobin 31.3 pg (28.0-33.3); Mean Corpuscular Volume 97.2 fL (83.0-100.0); Mean Platelet Volume 12.3 fL (9.4-12.4); Platelet Count 317 K/mcL (140-400); Red Blood Count 3.23 M/mcL (4.19-5.50); Red Cell Distribution Width 21.4 % (11.5-14.5); White Blood Count 12.2 K/mcL (4.3-11.1)
[2020-05-22] MEDS: Amiodarone Premix 360 MG/200 ML BAG IVC SCH (21:22)
[2020-05-23] MEDS: *HR* Dextrose 50 % in Water (Vial) 50 ML VIAL IVP PRN ×5 (00:01→08:40)
[2020-05-23] MEDS: Insulin LISPRO 300 UNITS/3 ML VIAL SUBQ SCH ×6 (00:13→22:07)
[2020-05-23] MEDS: *HR* Metoprolol 5 MG/5 ML VIAL IVP PRN (03:12)
[2020-05-23] MEDS: Artificial Tears SOLN 15 ML BOTTLE BOTH EYES SCH ×5 (03:13→20:50)
[2020-05-23] MEDS: Phenylephrine 50 MG in 0.9 % Sodium Chloride 250 ML IVC SCH ×2 (03:42→15:34)
[2020-05-23] MEDS: Pantoprazole 40 MG VIAL IVP SCH ×2 (05:42→17:50)
[2020-05-23] MEDS: Cefepime HCl 2,000 MG in Water for inj. (sterile) 20 ML IVP SCH ×3 (05:42→20:49)
[2020-05-23] MEDS: Heparin 25,000UNIT/250ML 1/2NS 25,000 UNIT/250 ML IV.SOLN IVC SCH (05:43)
[2020-05-23] MEDS: Furosemide 40 MG/4 ML VIAL IVP SCH (08:14)
[2020-05-23] MEDS: Folic Acid 1 MG TABLET PO SCH (08:15)
[2020-05-23] MEDS: Dexamethasone 4 MG/ML VIAL IVP SCH (08:15)
[2020-05-23] MEDS: Docusate Oral Soln 100 MG/10 ML UDC GTUBE SCH ×2 (08:15→20:49)
[2020-05-23] MEDS: Aspirin 81 MG TAB.CHEW GTUBE SCH (08:16)
[2020-05-23] MEDS: MetroNIDAZOLE 500 MG/100 ML 500 MG/100 ML BAG IVPB SCH ×3 (08:17→15:28)
[2020-05-23] MEDS: Insulin DETEMIR 100 UNIT/ML X5UNITS SUBQ SCH (08:17)
[2020-05-23] MEDS: Chlorhexidine Rinse 15 ML MOUTHWASH MM SCH ×2 (08:53→20:49)
[2020-05-23 09:00] LABS: Hematocrit 29.8 % (37.5-50.1); Hemoglobin 9.7 g/dL (12.9-16.9); Mean Corpuscular HGB Conc 32.6 g/dL (31.6-35.5); Mean Corpuscular Hemoglobin 31.8 pg (28.0-33.3); Mean Corpuscular Volume 97.7 fL (83.0-100.0); Mean Platelet Volume 12.1 fL (9.4-12.4); Nucleated Red Blood Cells 0.1 /100 WBC (0); Platelet Count 333 K/mcL (140-400); Red Blood Count 3.05 M/mcL (4.19-5.50); White Blood Count 13.9 K/mcL (4.3-11.1)
[2020-05-23] MEDS ORDERED: Potassium Chloride Elixir 20 MEQ/15 ML UDC PO SCH (09:00)
[2020-05-23 09:21] LABS: BUN/Creatinine Ratio 23 (6-26); Blood Urea Nitrogen 10 mg/dL (8-23); Carbon Dioxide 24 mEq/L (23-29); Chloride 112 mEq/L (98-107); Glucose 54 mg/dL (70-105); Osmolality,Calculated 291 (280-300); Potassium 2.7 mEq/L (3.5-5.1); Sodium 142 mEq/L (136-145); eGFR For African Americans > 60 (> 60); eGFR For Non-African Americans > 60 (> 60)
[2020-05-23 09:26] LABS: Lymphocytes # 2.4 K/mcL (0.6-4.6); Monocytes # 1.3 K/mcL (0.0-1.3); Platelet Estimate Normal (Normal)
[2020-05-23 09:27] LABS: Anisocytosis 2+ (Not Present); Poikilocytosis 1+ (Not Present)
[2020-05-23] MEDS: Amiodarone Premix 360 MG/200 ML BAG IVC SCH (09:35)
[2020-05-23] MEDS ORDERED: Potassium Chloride 40 MEQ, Lidocaine 1% 2 ML in 0.9 % Sodium Chloride 500 ML IVPB ONE (14:38)
[2020-05-23 21:42] LABS: BUN/Creatinine Ratio 22 (6-26); Blood Urea Nitrogen 10 mg/dL (8-23); Calcium 6.9 mg/dL (8.6-10.3); Carbon Dioxide 23 mEq/L (23-29); Chloride 111 mEq/L (98-107); Glucose 114 mg/dL (70-105); Osmolality,Calculated 294 (280-300); Potassium 3.6 mEq/L (3.5-5.1); Sodium 142 mEq/L (136-145); eGFR For African Americans > 60 (> 60); eGFR For Non-African Americans > 60 (> 60)
[2020-05-24] MEDS: MetroNIDAZOLE 500 MG/100 ML 500 MG/100 ML BAG IVPB SCH ×3 (00:03→16:23)
[2020-05-24] MEDS: Artificial Tears SOLN 15 ML BOTTLE BOTH EYES SCH ×3 (00:03→08:45)
[2020-05-24] MEDS: Heparin 25,000UNIT/250ML 1/2NS 25,000 UNIT/250 ML IV.SOLN IVC SCH ×2 (03:06→12:37)
[2020-05-24] MEDS: Insulin LISPRO 300 UNITS/3 ML VIAL SUBQ SCH ×6 (03:33→20:39)
[2020-05-24 04:55] LABS: Basophils # 0.1 K/mcL (0.0-0.2); Basophils % 0.6 %; Eosinophils % 0.1 %; Hematocrit 31.7 % (37.5-50.1); Immature Granulocytes % 3.2 % (0-4); Lymphocytes # 1.5 K/mcL (0.6-4.6); Lymphocytes % 15.4 %; Mean Corpuscular HGB Conc 31.5 g/dL (31.6-35.5); Mean Corpuscular Hemoglobin 31.2 pg (28.0-33.3); Mean Corpuscular Volume 98.8 fL (83.0-100.0); Mean Platelet Volume 12.2 fL (9.4-12.4); Monocytes # 0.9 K/mcL (0.0-1.3); Monocytes % 9.4 %; Neutrophils # 6.9 K/mcL (1.6-8.9); Platelet Count 357 K/mcL (140-400); Red Blood Count 3.21 M/mcL (4.19-5.50); Red Cell Distribution Width 22.5 % (11.5-14.5); Segmented Neutrophils % 71.3 %; White Blood Count 9.6 K/mcL (4.3-11.1)
[2020-05-24 05:07] LABS: VBG Ionized Calcium 0.96 mmol/L (1.15-1.35)
[2020-05-24 05:17] LABS: Alanine Aminotransferase 36 Units/L (7-52); Albumin 2.3 g/dL (3.5-5.7); Albumin/Globulin Ratio 0.7 (1.1-2.2); Alkaline Phosphatase 62 Units/L (34-104); Aspartate Amino Transferase 22 Units/L (13-39); BUN/Creatinine Ratio 22 (6-26); Bilirubin,Total 0.4 mg/dL (0.3-1.0); Blood Urea Nitrogen 11 mg/dL (8-23); Calcium 6.9 mg/dL (8.6-10.3); Carbon Dioxide 20 mEq/L (23-29); Chloride 112 mEq/L (98-107); Globulin 3.2 g/dL (2.4-3.5); Glucose 114 mg/dL (70-105); Magnesium 1.6 mg/dL (1.6-2.6); Osmolality,Calculated 292 (280-300); Phosphorous 2.1 mg/dL (2.7-4.5); Potassium 3.2 mEq/L (3.5-5.1); Sodium 141 mEq/L (136-145); Total Protein 5.5 g/dL (6.4-8.9); eGFR For African Americans > 60 (> 60); eGFR For Non-African Americans > 60 (> 60)
[2020-05-24] MEDS: Cefepime HCl 2,000 MG in Water for inj. (sterile) 20 ML IVP SCH ×3 (05:35→22:31)
[2020-05-24] MEDS: Pantoprazole 40 MG VIAL IVP SCH ×2 (05:35→16:24)
[2020-05-24] MEDS ORDERED: Potassium Phosphate 44 MEQ in 0.9 % Sodium Chloride 250 ML IVPB ONE (08:02)
[2020-05-24] MEDS ORDERED: *HR* Digoxin 0.5 MG/2 ML AMPUL IVP ONE ×3 (08:02→23:00)
[2020-05-24] MEDS: Dexamethasone 4 MG/ML VIAL IVP SCH (08:41)
[2020-05-24] MEDS: Chlorhexidine Rinse 15 ML MOUTHWASH MM SCH (08:41)
[2020-05-24] MEDS: Docusate Oral Soln 100 MG/10 ML UDC GTUBE SCH ×2 (08:42→20:39)
[2020-05-24] MEDS: Aspirin 81 MG TAB.CHEW GTUBE SCH (08:42)
[2020-05-24] MEDS: Furosemide 40 MG/4 ML VIAL IVP SCH (08:42)
[2020-05-24] MEDS: Folic Acid 1 MG TABLET PO SCH (08:42)
[2020-05-24] MEDS: Dexmedetomidine HCl 400 MCG/100 ML MLS IVC SCH (08:44)
[2020-05-24] MEDS: Amiodarone Premix 360 MG/200 ML BAG IVC SCH ×2 (09:00→19:57)
[2020-05-24] MEDS ORDERED: Albumin 25% 25gram/100mL 25 GM/100 ML IV.SOLN IVPB ONE (10:24)
[2020-05-24] MEDS ORDERED: Furosemide 40 MG/4 ML VIAL IVP SCH (10:25)
[2020-05-24] MEDS: Phenylephrine 50 MG in 0.9 % Sodium Chloride 250 ML IVC SCH (11:54)
[2020-05-24 16:30] LABS: HSV 1 DNA DETECTED (Not Detect); HSV 2 DNA Not Detected (Not Detect)
[2020-05-24 19:27] LABS: BUN/Creatinine Ratio 25 (6-26); Blood Urea Nitrogen 14 mg/dL (8-23); Carbon Dioxide 19 mEq/L (23-29); Chloride 110 mEq/L (98-107); Glucose 210 mg/dL (70-105); Magnesium 1.9 mg/dL (1.6-2.6); Osmolality,Calculated 297 (280-300); Phosphorous 3.9 mg/dL (2.7-4.5); Potassium 3.7 mEq/L (3.5-5.1); Sodium 140 mEq/L (136-145); eGFR For African Americans > 60 (> 60); eGFR For Non-African Americans > 60 (> 60)
[2020-05-25] MEDS: Heparin 25,000UNIT/250ML 1/2NS 25,000 UNIT/250 ML IV.SOLN IVC SCH (00:18)
[2020-05-25] MEDS: MetroNIDAZOLE 500 MG/100 ML 500 MG/100 ML BAG IVPB SCH ×3 (00:23→15:37)
[2020-05-25] MEDS: Insulin LISPRO 300 UNITS/3 ML VIAL SUBQ SCH ×5 (02:18→18:23)
[2020-05-25] MEDS: Pantoprazole 40 MG VIAL IVP SCH (05:13)
[2020-05-25] MEDS: Cefepime HCl 2,000 MG in Water for inj. (sterile) 20 ML IVP SCH ×3 (05:14→23:30)
[2020-05-25 06:00] LABS: Basophils % 0.3 %; Hematocrit 27.4 % (37.5-50.1); Immature Granulocytes % 1.7 % (0-4); Lymphocytes # 1.3 K/mcL (0.6-4.6); Lymphocytes % 15.5 %; Mean Corpuscular HGB Conc 32.8 g/dL (31.6-35.5); Mean Corpuscular Volume 100.4 fL (83.0-100.0); Mean Platelet Volume 11.8 fL (9.4-12.4); Monocytes # 0.7 K/mcL (0.0-1.3); Monocytes % 8.6 %; Neutrophils # 6.4 K/mcL (1.6-8.9); Platelet Count 333 K/mcL (140-400); Red Blood Count 2.73 M/mcL (4.19-5.50); Red Cell Distribution Width 23.8 % (11.5-14.5); Segmented Neutrophils % 73.9 %; White Blood Count 8.6 K/mcL (4.3-11.1)
[2020-05-25 06:21] LABS: Alanine Aminotransferase 26 Units/L (7-52); Albumin 2.6 g/dL (3.5-5.7); Albumin/Globulin Ratio 0.9 (1.1-2.2); Alkaline Phosphatase 50 Units/L (34-104); Aspartate Amino Transferase 18 Units/L (13-39); BUN/Creatinine Ratio 26 (6-26); Bilirubin,Total 0.4 mg/dL (0.3-1.0); Blood Urea Nitrogen 12 mg/dL (8-23); Calcium 6.9 mg/dL (8.6-10.3); Carbon Dioxide 23 mEq/L (23-29); Chloride 115 mEq/L (98-107); Globulin 2.8 g/dL (2.4-3.5); Glucose 47 mg/dL (70-105); Magnesium 1.9 mg/dL (1.6-2.6); Osmolality,Calculated 295 (280-300); Phosphorous 1.5 mg/dL (2.7-4.5); Potassium 2.9 mEq/L (3.5-5.1); Sodium 144 mEq/L (136-145); Total Protein 5.4 g/dL (6.4-8.9); eGFR For African Americans > 60 (> 60); eGFR For Non-African Americans > 60 (> 60)
[2020-05-25 06:26] LABS: Anisocytosis 1+ (Not Present); Large Platelets Present (Not Present); Platelet Estimate Normal (Normal); Poikilocytosis 1+ (Not Present)
[2020-05-25 06:27] LABS: Toxic Granulation Present (Not Present)
[2020-05-25] MEDS: *HR* Dextrose 50 % in Water (Vial) 50 ML VIAL IVP PRN (06:41)
[2020-05-25] MEDS ORDERED: Potassium Phosphate 44 MEQ in 0.9 % Sodium Chloride 250 ML IVPB ONE (07:14)
[2020-05-25 07:49] LABS: Digoxin 2.6 ng/mL (0.8-2.0)
[2020-05-25] MEDS: Folic Acid 1 MG TABLET PO SCH (07:59)
[2020-05-25] MEDS: Aspirin 81 MG TAB.CHEW GTUBE SCH (08:00)
[2020-05-25] MEDS: Dexamethasone 4 MG/ML VIAL IVP SCH (08:11)
[2020-05-25] MEDS: Amiodarone Premix 360 MG/200 ML BAG IVC SCH ×2 (08:12→21:12)
[2020-05-25] MEDS: Docusate Oral Soln 100 MG/10 ML UDC GTUBE SCH ×2 (08:14→22:37)
[2020-05-25] MEDS: ACYCLOVIR IVPB SCH ×2 (08:58→15:39)
[2020-05-25] MEDS: WATER IVPB SCH ×2 (08:58→15:39)
[2020-05-25] MEDS: D5 IVPB SCH ×2 (08:58→15:39)
[2020-05-25 15:04] LABS: VBG Ionized Calcium 0.92 mmol/L (1.15-1.35)
[2020-05-25 15:25] LABS: BUN/Creatinine Ratio 24 (6-26); Blood Urea Nitrogen 10 mg/dL (8-23); Carbon Dioxide 20 mEq/L (23-29); Chloride 114 mEq/L (98-107); Glucose 129 mg/dL (70-105); Magnesium 2.1 mg/dL (1.6-2.6); Osmolality,Calculated 297 (280-300); Phosphorous 3.1 mg/dL (2.7-4.5); Potassium 3.5 mEq/L (3.5-5.1); Sodium 143 mEq/L (136-145); eGFR For African Americans > 60 (> 60); eGFR For Non-African Americans > 60 (> 60)
[2020-05-25] MEDS ORDERED: Potassium Chloride 40 MEQ, Lidocaine 1% 2 ML in 0.9 % Sodium Chloride 500 ML IVPB ONE (15:37)
[2020-05-25] MEDS: *HR* Heparin 5,000 UNIT/ML VIAL SQ SCH (18:39)
[2020-05-26] MEDS: MetroNIDAZOLE 500 MG/100 ML 500 MG/100 ML BAG IVPB SCH ×2 (00:09→11:04)
[2020-05-26] MEDS: WATER IVPB SCH ×2 (00:10→12:50)
[2020-05-26] MEDS: ACYCLOVIR IVPB SCH ×2 (00:10→12:50)
[2020-05-26] MEDS: D5 IVPB SCH ×2 (00:10→12:50)
[2020-05-26] MEDS: Insulin LISPRO 300 UNITS/3 ML VIAL SUBQ SCH ×4 (00:30→18:16)
[2020-05-26 04:17] LABS: VBG Ionized Calcium 0.98 mmol/L (1.15-1.35)
[2020-05-26 04:18] LABS: Basophils % 0.2 %; Eosinophils % 0.1 %; Hematocrit 29.1 % (37.5-50.1); Hemoglobin 9.1 g/dL (12.9-16.9); Immature Granulocytes % 1.1 % (0-4); Lymphocytes # 0.8 K/mcL (0.6-4.6); Lymphocytes % 8.6 %; Mean Corpuscular HGB Conc 31.3 g/dL (31.6-35.5); Mean Corpuscular Hemoglobin 30.6 pg (28.0-33.3); Mean Platelet Volume 11.8 fL (9.4-12.4); Monocytes # 0.4 K/mcL (0.0-1.3); Monocytes % 4.9 %; Neutrophils # 7.7 K/mcL (1.6-8.9); Platelet Count 291 K/mcL (140-400); Red Blood Count 2.97 M/mcL (4.19-5.50); Red Cell Distribution Width 21.2 % (11.5-14.5); Segmented Neutrophils % 85.1 %
[2020-05-26 04:34] LABS: Alanine Aminotransferase 21 Units/L (7-52); Albumin 2.5 g/dL (3.5-5.7); Albumin/Globulin Ratio 0.9 (1.1-2.2); Alkaline Phosphatase 50 Units/L (34-104); Aspartate Amino Transferase 19 Units/L (13-39); BUN/Creatinine Ratio 20 (6-26); Bilirubin,Total 0.5 mg/dL (0.3-1.0); Blood Urea Nitrogen 8 mg/dL (8-23); Calcium 6.7 mg/dL (8.6-10.3); Carbon Dioxide 19 mEq/L (23-29); Chloride 116 mEq/L (98-107); Globulin 2.9 g/dL (2.4-3.5); Glucose 164 mg/dL (70-105); Osmolality,Calculated 296 (280-300); Phosphorous 1.9 mg/dL (2.7-4.5); Potassium 3.8 mEq/L (3.5-5.1); Sodium 142 mEq/L (136-145); Total Protein 5.4 g/dL (6.4-8.9); eGFR For African Americans > 60 (> 60); eGFR For Non-African Americans > 60 (> 60)
[2020-05-26] MEDS ORDERED: Potassium Phosphate 44 MEQ in 0.9 % Sodium Chloride 250 ML IVPB ONE (05:00)
[2020-05-26] MEDS: Calcium Gluconate 1gm/50mL 1 GM/50 ML BAG IVPB SCH ×2 (05:01→06:01)
[2020-05-26] MEDS: Cefepime HCl 2,000 MG in Water for inj. (sterile) 20 ML IVP SCH ×3 (05:14→21:00)
[2020-05-26] MEDS: *HR* Heparin 5,000 UNIT/ML VIAL SQ SCH ×2 (05:15→18:15)
[2020-05-26] MEDS: Norepinephrine 4 MG/254 ML IV.SOLN IVC SCH ×2 (07:35→16:43)
[2020-05-26] MEDS: Pantoprazole 40 MG VIAL IVP SCH (08:33)
[2020-05-26] MEDS: Dexamethasone 4 MG/ML VIAL IVP SCH (08:33)
[2020-05-26] MEDS: Aspirin 81 MG TAB.CHEW GTUBE SCH (08:38)
[2020-05-26] MEDS: Docusate Oral Soln 100 MG/10 ML UDC GTUBE SCH ×2 (08:38→20:55)
[2020-05-26] MEDS: Folic Acid 1 MG TABLET PO SCH (08:38)
[2020-05-26] MEDS ORDERED: *HR* Digoxin 0.5 MG/2 ML AMPUL IVP SCH (09:00)
[2020-05-26] MEDS: Amiodarone Premix 360 MG/200 ML BAG IVC SCH ×2 (09:00→19:56)
[2020-05-26] MEDS ORDERED: *HR* Propofol 200 MG/20 ML VIAL IVP ONE (09:12)
[2020-05-26] MEDS ORDERED: *HR* FentaNYL (PF) 100 MCG/2 ML VIAL ONE (09:12)
[2020-05-26] MEDS ORDERED: Dexamethasone 4 MG/ML VIAL ONE (09:14)
[2020-05-26] MEDS ORDERED: Ondansetron 4 MG/2 ML VIAL ONE (09:14)
[2020-05-26] MEDS ORDERED: Lidocaine -MPF 2% 2 ML VIAL ONE (09:14)
[2020-05-26] MEDS ORDERED: Lidocaine -MPF 4% 5 ML AMPUL ONE (09:14)
[2020-05-26] MEDS ORDERED: *HR* Succinylcholine 200 MG/10 ML VIAL IVP ONE (09:14)
[2020-05-26] MEDS ORDERED: *HR* PHENYLEPHRINE 1,000 MCG/10 ML SYRINGE IVP ONE ×2 (09:31→09:53)
[2020-05-26 13:03] LABS: Source of Body Fluid RLL BAL
[2020-05-26 13:52] LABS: Appearance of Body Fluid Cloudy (Clear); Volume of Body Fluid 19 mL
[2020-05-26] MEDS: Phenylephrine 50 MG in 0.9 % Sodium Chloride 250 ML IVC SCH (18:20)
[2020-05-26] MEDS: Acyclovir 200 MG CAPSULE GTUBE SCH (20:59)
[2020-05-27] MEDS: Insulin LISPRO 300 UNITS/3 ML VIAL SUBQ SCH ×4 (01:01→18:20)
[2020-05-27 05:08] LABS: Basophils % 0.3 %; Hematocrit 29.5 % (37.5-50.1); Hemoglobin 8.9 g/dL (12.9-16.9); Lymphocytes # 0.8 K/mcL (0.6-4.6); Lymphocytes % 10.8 %; Mean Corpuscular HGB Conc 30.2 g/dL (31.6-35.5); Mean Corpuscular Hemoglobin 29.3 pg (28.0-33.3); Mean Platelet Volume 11.4 fL (9.4-12.4); Monocytes # 0.5 K/mcL (0.0-1.3); Neutrophils # 5.8 K/mcL (1.6-8.9); Platelet Count 291 K/mcL (140-400); Red Blood Count 3.04 M/mcL (4.19-5.50); Red Cell Distribution Width 19.9 % (11.5-14.5); Segmented Neutrophils % 80.9 %; White Blood Count 7.1 K/mcL (4.3-11.1)
[2020-05-27 05:11] LABS: VBG Ionized Calcium 1.08 mmol/L (1.15-1.35)
[2020-05-27 05:29] LABS: Alanine Aminotransferase 18 Units/L (7-52); Albumin 2.5 g/dL (3.5-5.7); Albumin/Globulin Ratio 0.9 (1.1-2.2); Alkaline Phosphatase 49 Units/L (34-104); Aspartate Amino Transferase 16 Units/L (13-39); BUN/Creatinine Ratio 23 (6-26); Bilirubin,Total 0.4 mg/dL (0.3-1.0); Blood Urea Nitrogen 9 mg/dL (8-23); Calcium 7.3 mg/dL (8.6-10.3); Carbon Dioxide 21 mEq/L (23-29); Chloride 115 mEq/L (98-107); Digoxin 0.6 ng/mL (0.8-2.0); Globulin 2.9 g/dL (2.4-3.5); Glucose 114 mg/dL (70-105); Magnesium 1.9 mg/dL (1.6-2.6); Osmolality,Calculated 292 (280-300); Phosphorous 1.7 mg/dL (2.7-4.5); Potassium 3.8 mEq/L (3.5-5.1); Sodium 141 mEq/L (136-145); Total Protein 5.4 g/dL (6.4-8.9); eGFR For African Americans > 60 (> 60); eGFR For Non-African Americans > 60 (> 60)
[2020-05-27] MEDS: Cefepime HCl 2,000 MG in Water for inj. (sterile) 20 ML IVP SCH ×3 (05:32→21:02)
[2020-05-27] MEDS: Amiodarone Premix 360 MG/200 ML BAG IVC SCH (05:33)
[2020-05-27] MEDS: *HR* Heparin 5,000 UNIT/ML VIAL SQ SCH (05:33)
[2020-05-27] MEDS ORDERED: Potassium Phosphate 44 MEQ in 0.9 % Sodium Chloride 250 ML IVPB ONE (06:27)
[2020-05-27] MEDS: Calcium Gluconate 1gm/50mL 1 GM/50 ML BAG IVPB SCH ×2 (06:52→07:36)
[2020-05-27] MEDS: Docusate Oral Soln 100 MG/10 ML UDC GTUBE SCH ×2 (07:55→20:05)
[2020-05-27] MEDS: *HR* Amiodarone 200 MG TABLET PO SCH ×2 (07:56→20:05)
[2020-05-27] MEDS: Pantoprazole 40 MG VIAL IVP SCH (07:56)
[2020-05-27] MEDS: Acyclovir 200 MG CAPSULE GTUBE SCH ×3 (07:56→20:05)
[2020-05-27] MEDS: Folic Acid 1 MG TABLET PO SCH (07:56)
[2020-05-27] MEDS: Aspirin 81 MG TAB.CHEW GTUBE SCH (07:56)
[2020-05-27] MEDS ORDERED: dexAMETHasone 4 MG TABLET PO SCH ×2 (09:00→12:11)
[2020-05-27] MEDS ORDERED: Dexamethasone 4 MG/ML VIAL IVP SCH (09:00)
[2020-05-27] MEDS ORDERED: *HR* Digoxin 0.125 MG TABLET GTUBE SCH (09:00)
[2020-05-27] MEDS ORDERED: *HR* Heparin 5,000 UNIT/ML VIAL IVP PRN ×2 (12:11)
[2020-05-27] MEDS ORDERED: Heparin 25,000UNIT/250ML 1/2NS 25,000 UNIT/250 ML IV.SOLN IVC SCH (12:15)
[2020-05-27 14:36] LABS: INR 1.6; Prothrombin Time 18.2 Seconds (9.4-12.1)
[2020-05-27 14:42] LABS: Heparin anti-factor XA UFH < 0.04 IU/mL (0.30-0.70)
[2020-05-27 17:02] LABS: Hematocrit 31.4 % (37.5-50.1); Hemoglobin 9.1 g/dL (12.9-16.9); Mean Corpuscular Hemoglobin 28.3 pg (28.0-33.3); Mean Corpuscular Volume 97.8 fL (83.0-100.0); Mean Platelet Volume 11.5 fL (9.4-12.4); Platelet Count 347 K/mcL (140-400); Red Blood Count 3.21 M/mcL (4.19-5.50); Red Cell Distribution Width 19.5 % (11.5-14.5); White Blood Count 9.5 K/mcL (4.3-11.1)
[2020-05-28] MEDS: Insulin LISPRO 300 UNITS/3 ML VIAL SUBQ SCH ×4 (00:30→19:42)
[2020-05-28] MEDS: Cefepime HCl 2,000 MG in Water for inj. (sterile) 20 ML IVP SCH ×3 (06:26→21:39)
[2020-05-28] MEDS ORDERED: *HR* Dextrose 50 % in Water (Vial) 50 ML VIAL IVP PRN (07:48)
[2020-05-28] MEDS ORDERED: Dextrose Gel 15 GM/37.5 ML TUBE PO PRN ×2 (07:48)
[2020-05-28] MEDS ORDERED: D5% in Water 1,000 ML IVC PRN (07:48)
[2020-05-28] MEDS ORDERED: Perflutren Lipid Microsphere 1.3 ML in 0.9 % Sodium Chloride 8.7 ML IVP PRN (07:48)
[2020-05-28] MEDS ORDERED: *HR* Heparin 5,000 UNIT/ML VIAL IVP PRN ×2 (07:48)
[2020-05-28] MEDS ORDERED: Naloxone 0.4 MG/ML INJ IVP PRN (07:48)
[2020-05-28] MEDS: Docusate Oral Soln 100 MG/10 ML UDC GTUBE SCH ×2 (08:15→20:06)
[2020-05-28] MEDS: Folic Acid 1 MG TABLET PO SCH (08:15)
[2020-05-28] MEDS: *HR* Amiodarone 200 MG TABLET PO SCH ×2 (08:15→20:06)
[2020-05-28] MEDS: Cholecalciferol (D-3) 1,000 UNIT (25MCG) TABLET PO SCH (08:15)
[2020-05-28] MEDS: *HR* Digoxin 0.125 MG TABLET GTUBE SCH (08:15)
[2020-05-28] MEDS: Aspirin 81 MG TAB.CHEW GTUBE SCH (08:15)
[2020-05-28] MEDS: dexAMETHasone 4 MG TABLET PO SCH (08:15)
[2020-05-28] MEDS: Acyclovir 200 MG CAPSULE GTUBE SCH ×3 (08:15→20:06)
[2020-05-28] MEDS: Pantoprazole 40 MG VIAL IVP SCH (08:16)
[2020-05-28] MEDS: Heparin 25,000UNIT/250ML 1/2NS 25,000 UNIT/250 ML IV.SOLN IVC SCH (08:18)
[2020-05-28] MEDS ORDERED: Cholecalciferol (D-3) 1,000 UNIT (25MCG) TABLET PO SCH (09:00)
[2020-05-28 12:12] LABS: Basophils % 0.1 %; Eosinophils % 0.1 %; Hematocrit 30.6 % (37.5-50.1); Hemoglobin 9.2 g/dL (12.9-16.9); Immature Granulocytes % 0.8 % (0-4); Lymphocytes # 0.6 K/mcL (0.6-4.6); Lymphocytes % 7.5 %; Mean Corpuscular HGB Conc 30.1 g/dL (31.6-35.5); Mean Corpuscular Hemoglobin 29.5 pg (28.0-33.3); Mean Corpuscular Volume 98.1 fL (83.0-100.0); Mean Platelet Volume 11.7 fL (9.4-12.4); Monocytes # 0.6 K/mcL (0.0-1.3); Monocytes % 6.7 %; Platelet Count 308 K/mcL (140-400); Red Blood Count 3.12 M/mcL (4.19-5.50); Red Cell Distribution Width 20.5 % (11.5-14.5); Segmented Neutrophils % 84.8 %; White Blood Count 8.3 K/mcL (4.3-11.1)
[2020-05-28 12:17] LABS: VBG Ionized Calcium 1.19 mmol/L (1.15-1.35)
[2020-05-28 12:29] LABS: Alanine Aminotransferase 17 Units/L (7-52); Albumin 2.6 g/dL (3.5-5.7); Albumin/Globulin Ratio 0.9 (1.1-2.2); Alkaline Phosphatase 58 Units/L (34-104); Aspartate Amino Transferase 16 Units/L (13-39); BUN/Creatinine Ratio 28 (6-26); Bilirubin,Total 0.6 mg/dL (0.3-1.0); Blood Urea Nitrogen 11 mg/dL (8-23); Calcium 7.9 mg/dL (8.6-10.3); Carbon Dioxide 22 mEq/L (23-29); Chloride 114 mEq/L (98-107); Digoxin 0.7 ng/mL (0.8-2.0); Glucose 156 mg/dL (70-105); Magnesium 1.8 mg/dL (1.6-2.6); Osmolality,Calculated 295 (280-300); Phosphorous 1.7 mg/dL (2.7-4.5); Potassium 3.6 mEq/L (3.5-5.1); Sodium 141 mEq/L (136-145); Total Protein 5.6 g/dL (6.4-8.9); eGFR For African Americans > 60 (> 60); eGFR For Non-African Americans > 60 (> 60)
[2020-05-28] MEDS ORDERED: *HR* Metoprolol 5 MG/5 ML VIAL IVP ONE (16:49)
[2020-05-29] MEDS: Heparin 25,000UNIT/250ML 1/2NS 25,000 UNIT/250 ML IV.SOLN IVC SCH ×2 (00:20→08:17)
[2020-05-29] MEDS: Insulin LISPRO 300 UNITS/3 ML VIAL SUBQ SCH ×5 (00:49→18:55)
[2020-05-29] MEDS: Cefepime HCl 2,000 MG in Water for inj. (sterile) 20 ML IVP SCH ×2 (05:56→15:16)
[2020-05-29] MEDS: Docusate Oral Soln 100 MG/10 ML UDC GTUBE SCH ×2 (08:16→21:17)
[2020-05-29] MEDS: Cholecalciferol (D-3) 1,000 UNIT (25MCG) TABLET PO SCH (08:16)
[2020-05-29] MEDS: Pantoprazole 40 MG VIAL IVP SCH (08:16)
[2020-05-29] MEDS: Aspirin 81 MG TAB.CHEW GTUBE SCH (08:17)
[2020-05-29] MEDS: *HR* Digoxin 0.125 MG TABLET GTUBE SCH (08:17)
[2020-05-29] MEDS: *HR* Amiodarone 200 MG TABLET PO SCH ×2 (08:17→21:16)
[2020-05-29] MEDS: Acyclovir 200 MG CAPSULE GTUBE SCH ×3 (08:17→21:16)
[2020-05-29] MEDS: Folic Acid 1 MG TABLET PO SCH (08:17)
[2020-05-29] MEDS: dexAMETHasone 4 MG TABLET PO SCH (08:17)
[2020-05-29 12:41] LABS: Basophils % 0.1 %; Hemoglobin 8.4 g/dL (12.9-16.9); Lymphocytes # 0.3 K/mcL (0.6-4.6); Lymphocytes % 3.9 %; Mean Corpuscular Hemoglobin 27.8 pg (28.0-33.3); Mean Corpuscular Volume 92.7 fL (83.0-100.0); Mean Platelet Volume 11.9 fL (9.4-12.4); Monocytes # 0.2 K/mcL (0.0-1.3); Monocytes % 2.6 %; Neutrophils # 7.1 K/mcL (1.6-8.9); Platelet Count 266 K/mcL (140-400); Red Blood Count 3.02 M/mcL (4.19-5.50); Red Cell Distribution Width 19.4 % (11.5-14.5); Segmented Neutrophils % 92.4 %; White Blood Count 7.6 K/mcL (4.3-11.1)
[2020-05-29 13:01] LABS: Alanine Aminotransferase 14 Units/L (7-52); Albumin 2.4 g/dL (3.5-5.7); Albumin/Globulin Ratio 0.8 (1.1-2.2); Alkaline Phosphatase 71 Units/L (34-104); Aspartate Amino Transferase 13 Units/L (13-39); BUN/Creatinine Ratio 29 (6-26); Bilirubin,Total 0.5 mg/dL (0.3-1.0); Blood Urea Nitrogen 11 mg/dL (8-23); Calcium 7.9 mg/dL (8.6-10.3); Carbon Dioxide 19 mEq/L (23-29); Chloride 110 mEq/L (98-107); Glucose 321 mg/dL (70-105); Magnesium 1.6 mg/dL (1.6-2.6); Osmolality,Calculated 292 (280-300); Phosphorous 2.1 mg/dL (2.7-4.5); Potassium 3.6 mEq/L (3.5-5.1); Sodium 135 mEq/L (136-145); Total Protein 5.4 g/dL (6.4-8.9); eGFR For African Americans > 60 (> 60); eGFR For Non-African Americans > 60 (> 60)
[2020-05-30] MEDS: Insulin LISPRO 300 UNITS/3 ML VIAL SUBQ SCH ×4 (02:50→17:02)
[2020-05-30 06:55] LABS: Basophils % 0.2 %; Eosinophils % 0.1 %; Hematocrit 28.4 % (37.5-50.1); Hemoglobin 8.5 g/dL (12.9-16.9); Immature Granulocytes % 1.2 % (0-4); Lymphocytes # 0.8 K/mcL (0.6-4.6); Lymphocytes % 10.3 %; Mean Corpuscular HGB Conc 29.9 g/dL (31.6-35.5); Mean Corpuscular Hemoglobin 28.1 pg (28.0-33.3); Mean Platelet Volume 11.7 fL (9.4-12.4); Monocytes # 0.6 K/mcL (0.0-1.3); Neutrophils # 6.5 K/mcL (1.6-8.9); Platelet Count 258 K/mcL (140-400); Red Blood Count 3.02 M/mcL (4.19-5.50); Red Cell Distribution Width 19.4 % (11.5-14.5); Segmented Neutrophils % 81.2 %
[2020-05-30 07:00] LABS: VBG Ionized Calcium 1.22 mmol/L (1.15-1.35)
[2020-05-30 07:21] LABS: Alanine Aminotransferase 13 Units/L (7-52); Albumin 2.5 g/dL (3.5-5.7); Albumin/Globulin Ratio 0.9 (1.1-2.2); Alkaline Phosphatase 85 Units/L (34-104); Aspartate Amino Transferase 14 Units/L (13-39); BUN/Creatinine Ratio 36 (6-26); Bilirubin,Total 0.3 mg/dL (0.3-1.0); Blood Urea Nitrogen 14 mg/dL (8-23); Carbon Dioxide 23 mEq/L (23-29); Chloride 109 mEq/L (98-107); Digoxin 0.5 ng/mL (0.8-2.0); Globulin 2.9 g/dL (2.4-3.5); Glucose 335 mg/dL (70-105); Magnesium 1.8 mg/dL (1.6-2.6); Osmolality,Calculated 298 (280-300); Phosphorous 2.2 mg/dL (2.7-4.5); Potassium 3.4 mEq/L (3.5-5.1); Sodium 137 mEq/L (136-145); Total Protein 5.4 g/dL (6.4-8.9); eGFR For African Americans > 60 (> 60); eGFR For Non-African Americans > 60 (> 60)
[2020-05-30] MEDS: Aspirin 81 MG TAB.CHEW GTUBE SCH (09:37)
[2020-05-30] MEDS: dexAMETHasone 4 MG TABLET PO SCH (09:37)
[2020-05-30] MEDS: *HR* Amiodarone 200 MG TABLET PO SCH ×2 (09:37→21:51)
[2020-05-30] MEDS: Acyclovir 200 MG CAPSULE GTUBE SCH ×3 (09:39→21:51)
[2020-05-30] MEDS: Folic Acid 1 MG TABLET PO SCH (09:39)
[2020-05-30] MEDS: Cholecalciferol (D-3) 1,000 UNIT (25MCG) TABLET PO SCH (09:39)
[2020-05-30] MEDS: Pantoprazole 40 MG VIAL IVP SCH (09:39)
[2020-05-30] MEDS: *HR* Digoxin 0.125 MG TABLET GTUBE SCH (09:39)
[2020-05-30] MEDS: Docusate Oral Soln 100 MG/10 ML UDC GTUBE SCH ×2 (09:40→21:52)
[2020-05-30] MEDS ORDERED: Potassium Phosphate 44 MEQ in 0.9 % Sodium Chloride 250 ML IVPB ONE (15:10)
[2020-05-30] MEDS ORDERED: *HR* Heparin 5,000 UNIT/ML VIAL IVP PRN ×2 (16:12)
[2020-05-30] MEDS ORDERED: Heparin 25,000UNIT/250ML 1/2NS 25,000 UNIT/250 ML IV.SOLN IVC SCH (16:12)
[2020-05-30] MEDS: Apixaban 5 MG TABLET PO SCH (17:05)
[2020-05-30] MEDS: Insulin DETEMIR 100 UNIT/ML X5UNITS SUBQ SCH (21:54)
[2020-05-31] MEDS: Insulin LISPRO 300 UNITS/3 ML VIAL SUBQ SCH ×5 (00:59→23:55)
[2020-05-31] MEDS: Apixaban 5 MG TABLET PO SCH ×2 (05:34→16:55)
[2020-05-31] MEDS: Docusate Oral Soln 100 MG/10 ML UDC GTUBE SCH ×2 (07:22→20:04)
[2020-05-31] MEDS: Acyclovir 200 MG CAPSULE GTUBE SCH ×3 (09:02→20:01)
[2020-05-31] MEDS: Cholecalciferol (D-3) 1,000 UNIT (25MCG) TABLET PO SCH (09:02)
[2020-05-31] MEDS: Folic Acid 1 MG TABLET PO SCH (09:03)
[2020-05-31] MEDS: *HR* Amiodarone 200 MG TABLET PO SCH ×2 (09:03→20:01)
[2020-05-31] MEDS: *HR* Digoxin 0.125 MG TABLET GTUBE SCH (09:03)
[2020-05-31] MEDS: dexAMETHasone 4 MG TABLET PO SCH (09:04)
[2020-05-31] MEDS: Aspirin 81 MG TAB.CHEW GTUBE SCH (09:07)
[2020-05-31] MEDS: lisinopriL 5 MG TABLET PO SCH (11:44)
[2020-05-31] MEDS: Insulin DETEMIR 100 UNIT/ML X5UNITS SUBQ SCH (20:02)
[2020-06-01] MEDS: Apixaban 5 MG TABLET PO SCH (05:29)
[2020-06-01] MEDS: Insulin LISPRO 300 UNITS/3 ML VIAL SUBQ SCH ×2 (06:59→11:49)
[2020-06-01] MEDS: dexAMETHasone 4 MG TABLET PO SCH (08:37)
[2020-06-01] MEDS: Acyclovir 200 MG CAPSULE GTUBE SCH (08:38)
[2020-06-01] MEDS: lisinopriL 5 MG TABLET PO SCH (08:38)
[2020-06-01] MEDS: *HR* Digoxin 0.125 MG TABLET GTUBE SCH (08:40)
[2020-06-01] MEDS: Cholecalciferol (D-3) 1,000 UNIT (25MCG) TABLET PO SCH (08:40)
[2020-06-01] MEDS: Aspirin 81 MG TAB.CHEW GTUBE SCH (08:41)
[2020-06-01] MEDS: *HR* Amiodarone 200 MG TABLET PO SCH (08:41)
[2020-06-01] MEDS: Folic Acid 1 MG TABLET PO SCH (08:41)
[2020-06-01] MEDS: Docusate Oral Soln 100 MG/10 ML UDC GTUBE SCH (08:42)
[2020-06-01 11:47] VITALS: BP 109/60
== END 2020-06-01 15:39 | DRG 870 ==
LOC: ICNU → 2NENU 05-16 12:26
PROVIDERS: ADMIT Internal Medicine; ATTEND Internal Medicine

== ENCOUNTER 2020-06-09 17:48 | Inpatient (IN) ==
[2020-06-09] MEDS ORDERED: Ondansetron ODT 4 MG TAB.RAPDIS SL PRN (21:06)
[2020-06-09] MEDS ORDERED: Naloxone 0.4 MG/ML INJ IVP PRN (21:06)
[2020-06-09] MEDS ORDERED: Dextrose Gel 15 GM/37.5 ML TUBE PO PRN ×2 (21:10)
[2020-06-09] MEDS ORDERED: D5% in Water 1,000 ML IVC PRN (21:10)
[2020-06-09] MEDS ORDERED: 0.9 % Sodium Chloride 1,000 ML IVC ONE (21:12)
[2020-06-09] MEDS ORDERED: Insulin LISPRO 300 UNITS/3 ML VIAL SUBQ SCH (21:15)
[2020-06-09] MEDS ORDERED: Acetaminophen IV 500 MG/50 ML BAG IVPB ONE (22:15)
[2020-06-09] MEDS: Insulin DETEMIR 100 UNIT/ML X5UNITS SUBQ SCH (23:08)
[2020-06-09] MEDS: Cefepime HCl 1,000 MG in 0.9 % Sodium Chloride Mini Bag 100 ML IVPB SCH (23:15)
[2020-06-10 00:52] LABS: Chol/HDL Ratio 2.8 (0-4.9); Magnesium 1.9 mg/dL (1.6-2.6); Phosphorous 3.2 mg/dL (2.7-4.5)
[2020-06-10 01:58] LABS: Hematocrit 29.3 % (37.5-50.1); Hemoglobin 8.6 g/dL (12.9-16.9); Lymphocytes # 0.5 K/mcL (0.6-4.6); Mean Corpuscular HGB Conc 29.4 g/dL (31.6-35.5); Mean Corpuscular Volume 92.1 fL (83.0-100.0); Mean Platelet Volume 10.5 fL (9.4-12.4); Monocytes # 0.5 K/mcL (0.0-1.3); Platelet Count 300 K/mcL (140-400); Red Blood Count 3.18 M/mcL (4.19-5.50); Red Cell Distribution Width 19.2 % (11.5-14.5); White Blood Count 7.7 K/mcL (4.3-11.1)
[2020-06-10 01:59] LABS: INR 1.8; Prothrombin Time 20.2 Seconds (9.4-12.1)
[2020-06-10 02:25] LABS: Neutrophils # 6.8 K/mcL (1.6-8.9); Platelet Estimate Normal (Normal); Smudge Cells Present (Not Present); Toxic Vacuolation Present (Not Present)
[2020-06-10] MEDS ORDERED: 0.9 % Sodium Chloride 1,000 ML IVC SCH ×2 (04:00→06:00)
[2020-06-10] MEDS: Apixaban 5 MG TABLET GTUBE SCH ×2 (06:03→17:20)
[2020-06-10 07:13] LABS: Bacteria,Urine Few per hpf (None-Few); Bilirubin,Urine Negative (Negative); Blood,Urine Negative (Negative); Clarity,Urine Turbid (Clear); Color,Urine Yellow (Yellow); Glucose,Urine (UA) 200 mg/dL (Normal); Ketones,Urine Negative (Negative); Leukocyte Esterase,Urine Negative (Negative); Mucus,Urine Few per lpf (None-Few); Nitrite,Urine Negative (Negative); PH,Urine 5.5 pH Units (5.0-8.0); Protein,Urine 30 mg/dL (Neg-Trace); Specific Gravity,Urine 1.021 (1.010-1.025); Squamous Epithelial Cell,Urine Few per hpf (None-Few); Urobilinogen,Urine Normal (Normal)
[2020-06-10] MEDS ORDERED: Insulin LISPRO 300 UNITS/3 ML VIAL SUBQ SCH (07:30)
[2020-06-10] MEDS: Cefepime HCl 1,000 MG in 0.9 % Sodium Chloride Mini Bag 100 ML IVPB SCH ×3 (08:57→23:42)
[2020-06-10] MEDS ORDERED: *HR* Amiodarone 200 MG TABLET PO SCH (09:00)
[2020-06-10] MEDS ORDERED: Aspirin Enteric Coated 81 MG Tablet PO SCH (09:00)
[2020-06-10] MEDS: Aspirin 81 MG TAB.CHEW GTUBE SCH (09:53)
[2020-06-10] MEDS: *HR* Amiodarone 200 MG TABLET PO SCH (09:53)
[2020-06-10] MEDS: *HR* Dextrose 50 % in Water (Vial) 50 ML VIAL IVP PRN ×3 (11:44→16:24)
[2020-06-10] MEDS ORDERED: Acetaminophen 325 MG TABLET PO PRN (11:47)
[2020-06-10] MEDS ORDERED: Metoprolol XL (24 HR) Succ 25 MG TAB.ER.24H PO SCH (12:00)
[2020-06-10 12:49] LABS: BUN/Creatinine Ratio 55 (6-26); Blood Urea Nitrogen 28 mg/dL (8-23); Calcium 7.5 mg/dL (8.6-10.3); Carbon Dioxide 21 mEq/L (23-29); Chloride 111 mEq/L (98-107); Glucose 118 mg/dL (70-105); Osmolality,Calculated 293 (280-300); Potassium 3.4 mEq/L (3.5-5.1); Sodium 138 mEq/L (136-145); eGFR For African Americans > 60 (> 60); eGFR For Non-African Americans > 60 (> 60)
[2020-06-10] MEDS: *HR* Digoxin 0.125 MG TABLET GTUBE SCH (14:05)
[2020-06-10] MEDS: Insulin LISPRO 300 UNITS/3 ML VIAL SUBQ SCH (16:21)
[2020-06-10] MEDS: Insulin DETEMIR 100 UNIT/ML X5UNITS SUBQ SCH (21:59)
[2020-06-11] MEDS: Apixaban 5 MG TABLET GTUBE SCH ×2 (05:53→17:47)
[2020-06-11 06:20] LABS: Hematocrit 25.9 % (37.5-50.1); Hemoglobin 7.8 g/dL (12.9-16.9); Mean Corpuscular HGB Conc 30.1 g/dL (31.6-35.5); Mean Corpuscular Hemoglobin 27.7 pg (28.0-33.3); Mean Corpuscular Volume 91.8 fL (83.0-100.0); Mean Platelet Volume 11.2 fL (9.4-12.4); Nucleated Red Blood Cells 0.2 /100 WBC (0); Platelet Count 277 K/mcL (140-400); Red Blood Count 2.82 M/mcL (4.19-5.50); Red Cell Distribution Width 18.9 % (11.5-14.5); White Blood Count 11.1 K/mcL (4.3-11.1)
[2020-06-11 06:27] LABS: BUN/Creatinine Ratio 48 (6-26); Blood Urea Nitrogen 19 mg/dL (8-23); Calcium 7.8 mg/dL (8.6-10.3); Carbon Dioxide 21 mEq/L (23-29); Chloride 104 mEq/L (98-107); Glucose 225 mg/dL (70-105); Osmolality,Calculated 287 (280-300); Potassium 2.9 mEq/L (3.5-5.1); Sodium 134 mEq/L (136-145); eGFR For African Americans > 60 (> 60); eGFR For Non-African Americans > 60 (> 60)
[2020-06-11] MEDS ORDERED: Potassium Chloride 40 MEQ, Lidocaine 1% 2 ML in 0.9 % Sodium Chloride 500 ML IVPB ONE (07:34)
[2020-06-11] MEDS: Cefepime HCl 1,000 MG in 0.9 % Sodium Chloride Mini Bag 100 ML IVPB SCH ×3 (07:43→23:49)
[2020-06-11] MEDS: *HR* Amiodarone 200 MG TABLET PO SCH (07:45)
[2020-06-11] MEDS: *HR* Digoxin 0.125 MG TABLET GTUBE SCH (07:45)
[2020-06-11] MEDS: Aspirin 81 MG TAB.CHEW GTUBE SCH (07:45)
[2020-06-11] MEDS: Insulin LISPRO 300 UNITS/3 ML VIAL SUBQ SCH ×4 (07:46→17:55)
[2020-06-11 12:28] LABS: Monocytes # 0.7 K/mcL (0.0-1.3); Neutrophils # 10.4 K/mcL (1.6-8.9); Platelet Estimate Normal (Normal)
[2020-06-11 12:29] LABS: Anisocytosis 1+ (Not Present); Toxic Granulation Present (Not Present)
[2020-06-11] MEDS: Insulin DETEMIR 100 UNIT/ML X5UNITS SUBQ SCH (19:56)
[2020-06-12 05:13] LABS: Basophils % 0.1 %; Eosinophils # 0.1 K/mcL (0.0-0.6); Eosinophils % 0.6 %; Hematocrit 24.6 % (37.5-50.1); Hemoglobin 7.4 g/dL (12.9-16.9); Immature Granulocytes % 1.5 % (0-4); Lymphocytes # 0.5 K/mcL (0.6-4.6); Lymphocytes % 5.5 %; Mean Corpuscular HGB Conc 30.1 g/dL (31.6-35.5); Mean Corpuscular Hemoglobin 27.2 pg (28.0-33.3); Mean Corpuscular Volume 90.4 fL (83.0-100.0); Mean Platelet Volume 10.7 fL (9.4-12.4); Monocytes # 0.4 K/mcL (0.0-1.3); Monocytes % 4.1 %; Neutrophils # 8.2 K/mcL (1.6-8.9); Platelet Count 258 K/mcL (140-400); Red Blood Count 2.72 M/mcL (4.19-5.50); Red Cell Distribution Width 18.8 % (11.5-14.5); Segmented Neutrophils % 88.2 %; White Blood Count 9.3 K/mcL (4.3-11.1)
[2020-06-12] MEDS: Apixaban 5 MG TABLET GTUBE SCH ×2 (05:14→17:55)
[2020-06-12 05:36] LABS: BUN/Creatinine Ratio 34 (6-26); Blood Urea Nitrogen 12 mg/dL (8-23); Calcium 7.9 mg/dL (8.6-10.3); Carbon Dioxide 24 mEq/L (23-29); Chloride 108 mEq/L (98-107); Glucose 180 mg/dL (70-105); Osmolality,Calculated 294 (280-300); Potassium 2.9 mEq/L (3.5-5.1); Sodium 140 mEq/L (136-145); eGFR For African Americans > 60 (> 60); eGFR For Non-African Americans > 60 (> 60)
[2020-06-12 05:41] LABS: Anisocytosis 1+ (Not Present); Platelet Estimate Normal (Normal); Toxic Granulation Present (Not Present)
[2020-06-12] MEDS ORDERED: Potassium Chloride 40 MEQ, Lidocaine 1% 2 ML in 0.9 % Sodium Chloride 500 ML IVPB ONE (07:32)
[2020-06-12] MEDS: Cefepime HCl 1,000 MG in 0.9 % Sodium Chloride Mini Bag 100 ML IVPB SCH ×2 (09:00→17:55)
[2020-06-12] MEDS: Insulin LISPRO 300 UNITS/3 ML VIAL SUBQ SCH ×3 (09:01→17:28)
[2020-06-12] MEDS: *HR* Digoxin 0.125 MG TABLET GTUBE SCH (09:11)
[2020-06-12] MEDS: *HR* Amiodarone 200 MG TABLET PO SCH (09:12)
[2020-06-12] MEDS: Aspirin 81 MG TAB.CHEW GTUBE SCH (09:12)
[2020-06-12] MEDS: lisinopriL 5 MG TABLET GTUBE SCH (09:12)
[2020-06-12] MEDS: Insulin DETEMIR 100 UNIT/ML X5UNITS SUBQ SCH (21:12)
[2020-06-13] MEDS: Cefepime HCl 1,000 MG in 0.9 % Sodium Chloride Mini Bag 100 ML IVPB SCH ×4 (01:23→23:36)
[2020-06-13 04:42] LABS: Basophils % 0.2 %; Eosinophils # 0.1 K/mcL (0.0-0.6); Eosinophils % 1.6 %; Hematocrit 24.1 % (37.5-50.1); Hemoglobin 7.3 g/dL (12.9-16.9); Immature Granulocytes % 2.3 % (0-4); Lymphocytes # 0.6 K/mcL (0.6-4.6); Lymphocytes % 6.6 %; Mean Corpuscular HGB Conc 30.3 g/dL (31.6-35.5); Mean Corpuscular Hemoglobin 28.3 pg (28.0-33.3); Mean Corpuscular Volume 93.4 fL (83.0-100.0); Monocytes # 0.5 K/mcL (0.0-1.3); Monocytes % 5.8 %; Platelet Count 279 K/mcL (140-400); Red Blood Count 2.58 M/mcL (4.19-5.50); Red Cell Distribution Width 19.4 % (11.5-14.5); Segmented Neutrophils % 83.5 %; White Blood Count 8.7 K/mcL (4.3-11.1)
[2020-06-13 04:43] LABS: Neutrophils # 7.3 K/mcL (1.6-8.9)
[2020-06-13 05:00] LABS: BUN/Creatinine Ratio 34 (6-26); Blood Urea Nitrogen 12 mg/dL (8-23); Carbon Dioxide 27 mEq/L (23-29); Chloride 110 mEq/L (98-107); Glucose 216 mg/dL (70-105); Osmolality,Calculated 300 (280-300); Potassium 3.1 mEq/L (3.5-5.1); Sodium 142 mEq/L (136-145); eGFR For African Americans > 60 (> 60); eGFR For Non-African Americans > 60 (> 60)
[2020-06-13 05:04] LABS: Platelet Estimate Normal (Normal)
[2020-06-13 05:05] LABS: Anisocytosis 1+ (Not Present)
[2020-06-13 05:06] LABS: Toxic Granulation Present (Not Present)
[2020-06-13] MEDS: Apixaban 5 MG TABLET GTUBE SCH ×2 (05:18→17:25)
[2020-06-13] MEDS: lisinopriL 5 MG TABLET GTUBE SCH (07:53)
[2020-06-13] MEDS: Aspirin 81 MG TAB.CHEW GTUBE SCH (07:53)
[2020-06-13] MEDS: *HR* Digoxin 0.125 MG TABLET GTUBE SCH (07:54)
[2020-06-13] MEDS: *HR* Amiodarone 200 MG TABLET PO SCH (07:54)
[2020-06-13] MEDS: Insulin LISPRO 300 UNITS/3 ML VIAL SUBQ SCH ×3 (07:55→17:25)
[2020-06-13] MEDS ORDERED: Potassium Chloride 40 MEQ, Lidocaine 1% 2 ML in 0.9 % Sodium Chloride 500 ML IVPB ONE (13:18)
[2020-06-13] MEDS: Insulin DETEMIR 100 UNIT/ML X5UNITS SUBQ SCH (22:39)
[2020-06-14 01:25] LABS: Basophils % 0.3 %; Eosinophils # 0.1 K/mcL (0.0-0.6); Eosinophils % 0.7 %; Hemoglobin 7.5 g/dL (12.9-16.9); Immature Granulocytes % 5.1 % (0-4); Lymphocytes % 9.2 %; Mean Corpuscular Hemoglobin 27.3 pg (28.0-33.3); Mean Corpuscular Volume 90.9 fL (83.0-100.0); Mean Platelet Volume 10.6 fL (9.4-12.4); Monocytes # 0.8 K/mcL (0.0-1.3); Platelet Count 309 K/mcL (140-400); Red Blood Count 2.75 M/mcL (4.19-5.50); Red Cell Distribution Width 19.5 % (11.5-14.5); Segmented Neutrophils % 76.7 %; White Blood Count 10.5 K/mcL (4.3-11.1)
[2020-06-14 01:34] LABS: Neutrophils # 8.1 K/mcL (1.6-8.9)
[2020-06-14 01:40] LABS: BUN/Creatinine Ratio 30 (6-26); Blood Urea Nitrogen 12 mg/dL (8-23); Calcium 7.9 mg/dL (8.6-10.3); Carbon Dioxide 23 mEq/L (23-29); Chloride 107 mEq/L (98-107); Glucose 253 mg/dL (70-105); Osmolality,Calculated 296 (280-300); Potassium 3.2 mEq/L (3.5-5.1); Sodium 139 mEq/L (136-145); eGFR For African Americans > 60 (> 60); eGFR For Non-African Americans > 60 (> 60)
[2020-06-14 02:42] LABS: Anisocytosis 1+ (Not Present); Platelet Estimate Normal (Normal); Smudge Cells Present (Not Present); Toxic Granulation Present (Not Present)
[2020-06-14] MEDS: Apixaban 5 MG TABLET GTUBE SCH ×2 (05:18→18:29)
[2020-06-14] MEDS ORDERED: Potassium Chloride 40 MEQ, Lidocaine 1% 2 ML in 0.9 % Sodium Chloride 500 ML IVPB ONE (07:35)
[2020-06-14] MEDS: lisinopriL 5 MG TABLET GTUBE SCH (08:34)
[2020-06-14] MEDS: Aspirin 81 MG TAB.CHEW GTUBE SCH (08:34)
[2020-06-14] MEDS: *HR* Amiodarone 200 MG TABLET GTUBE SCH (08:34)
[2020-06-14] MEDS: Cefepime HCl 1,000 MG in 0.9 % Sodium Chloride Mini Bag 100 ML IVPB SCH ×3 (08:34→23:31)
[2020-06-14] MEDS: *HR* Digoxin 0.125 MG TABLET GTUBE SCH (08:35)
[2020-06-14] MEDS: Levalbuterol Neb 1.25 MG/3 ML IH SCH ×3 (10:10→22:12)
[2020-06-14] MEDS: Insulin LISPRO 300 UNITS/3 ML VIAL SUBQ SCH ×3 (10:25→18:29)
[2020-06-14] MEDS ORDERED: Scopolamine Patch 1.5 MG PATCH.TD72 TD SCH (14:00)
[2020-06-14] MEDS: Morphine Sulfate Oral CONC 10 MG/0.5 ML ORAL.SYG SL PRN (18:30)
[2020-06-14] MEDS: Insulin DETEMIR 100 UNIT/ML X5UNITS SUBQ SCH (20:47)
[2020-06-15 03:23] LABS: Hematocrit 21.9 % (37.5-50.1); Hemoglobin 6.5 g/dL (12.9-16.9); Mean Corpuscular HGB Conc 29.7 g/dL (31.6-35.5); Mean Corpuscular Hemoglobin 27.7 pg (28.0-33.3); Mean Corpuscular Volume 93.2 fL (83.0-100.0); Mean Platelet Volume 10.6 fL (9.4-12.4); Platelet Count 339 K/mcL (140-400); Red Blood Count 2.35 M/mcL (4.19-5.50); Red Cell Distribution Width 19.8 % (11.5-14.5); White Blood Count 10.5 K/mcL (4.3-11.1)
[2020-06-15 03:38] LABS: BUN/Creatinine Ratio 35 (6-26); Blood Urea Nitrogen 14 mg/dL (8-23); Calcium 7.7 mg/dL (8.6-10.3); Carbon Dioxide 27 mEq/L (23-29); Chloride 109 mEq/L (98-107); Glucose 94 mg/dL (70-105); Magnesium 1.9 mg/dL (1.6-2.6); Osmolality,Calculated 292 (280-300); Potassium 3.8 mEq/L (3.5-5.1); Sodium 141 mEq/L (136-145); eGFR For African Americans > 60 (> 60); eGFR For Non-African Americans > 60 (> 60)
[2020-06-15] MEDS: Levalbuterol Neb 1.25 MG/3 ML IH SCH ×4 (03:44→21:46)
[2020-06-15 03:58] LABS: Anisocytosis 1+ (Not Present); Eosinophils # 0.2 K/mcL (0.0-0.6); Lymphocytes # 0.6 K/mcL (0.6-4.6); Monocytes # 0.6 K/mcL (0.0-1.3); Neutrophils # 8.4 K/mcL (1.6-8.9); Platelet Estimate Normal (Normal)
[2020-06-15 03:59] LABS: Toxic Granulation Present (Not Present)
[2020-06-15] MEDS: Apixaban 5 MG TABLET GTUBE SCH (04:56)
[2020-06-15] MEDS: Cefepime HCl 1,000 MG in 0.9 % Sodium Chloride Mini Bag 100 ML IVPB SCH (11:43)
[2020-06-15] MEDS: Insulin LISPRO 300 UNITS/3 ML VIAL SUBQ SCH ×2 (11:43→17:16)
[2020-06-15] MEDS: Aspirin 81 MG TAB.CHEW GTUBE SCH (12:13)
[2020-06-15] MEDS: *HR* Amiodarone 200 MG TABLET GTUBE SCH (12:14)
[2020-06-15] MEDS: *HR* Digoxin 0.125 MG TABLET GTUBE SCH (12:14)
[2020-06-15] MEDS: Morphine Sulfate Oral CONC 10 MG/0.5 ML ORAL.SYG SL PRN ×3 (12:14→23:14)
[2020-06-15] MEDS: lisinopriL 5 MG TABLET GTUBE SCH (12:20)
[2020-06-15] MEDS: *HR* LORazepam 2 MG/ML VIAL IVP PRN ×2 (14:50→21:25)
[2020-06-15] MEDS: Insulin DETEMIR 100 UNIT/ML X5UNITS SUBQ SCH (21:21)
[2020-06-16] MEDS: Morphine Sulfate Oral CONC 10 MG/0.5 ML ORAL.SYG SL PRN ×3 (04:03→10:43)
[2020-06-16] MEDS: Levalbuterol Neb 1.25 MG/3 ML IH SCH (04:15)
[2020-06-16] MEDS: Insulin LISPRO 300 UNITS/3 ML VIAL SUBQ SCH (08:21)
[2020-06-16] MEDS ORDERED: Glycopyrrolate 0.2 MG/ML VIAL IVP ONE (09:23)
[2020-06-16] MEDS: Aspirin 81 MG TAB.CHEW GTUBE SCH (09:38)
[2020-06-16] MEDS: *HR* Digoxin 0.125 MG TABLET GTUBE SCH (09:39)
[2020-06-16] MEDS: *HR* Amiodarone 200 MG TABLET GTUBE SCH (09:39)
[2020-06-16] MEDS: *HR* LORazepam 2 MG/ML VIAL IVP PRN ×2 (09:45→10:43)
[2020-06-16 10:20] VITALS: BP 95/63
== END 2020-06-16 11:16 | disposition expired | DRG 871 ==
LOC: 2NNU → SUATTDRO 21:06 → 2ANU 06-13 20:22
PROVIDERS: ADMIT Internal Medicine; ATTEND Family Medicine